=== PATIENT | male | born 1950 | race Caucasian/White ===

== ENCOUNTER 2017-04-20 11:07 | Inpatient (IN) | payer BC ==
[2017-04-20] MEDS ORDERED: Piperacill/Tazo 4.5gm in NS 4.5 GM/100 ML BAG IVPB STA (11:37)
[2017-04-20] MEDS ORDERED: Vancomycin 1gm in NS 250ml 1 GM/250 ML BAG IVPB STA (11:37)
--- NOTE | 2017-04-20 11:49 | ED PDOC ---
Arrival/HPI <Rj Barron - Last Filed: 04/20/17 12:30> - General Historian: Patient, Family - History of Present Illness Time/Duration: 1 week Symptom Onset: Gradual Symptom Course: Unchanged Activities at Onset: Rest, Light Context: Home <Chalino Vaughn - Last Filed: 04/20/17 13:55> - General Chief Complaint: Lower Extremity Problem/Injury Time Seen by Provider: 04/20/17 11:14 - History of Present Illness Narrative History of Present Illness (Text): 04/20/17 11:44 Mr. Rdz is a 66 year old male with a past medical history significant for DM2 and HLD who presents with chief complaint of right lower extremity swelling for one week with failed outpatient Bactrim therapy. Patient reports that one week ago his right foot became swollen extending to the mid calf with no known inciting event or trauma. Patient was seen by Dr. Yan 3 days [employer] and discharged with NSAID's and PO Bactrim. Patient reports minimal relief with this treatment and endorses tactile fever this AM. He denies chills, headache, changes in vision, sore throat, chest pain, SOB, abdominal pain, N/V/D/C, burning/pain with urination, or any numbness/tingling/weakness of any extremity. (Chalino Vaughn) Past Medical History - Provider Review Nursing Documentation Reviewed: Yes - Travel History Have you recently traveled outside [place] w/in the past 3 mons?: No - Past History Past History: No Previous - Infectious Disease Hx of Infectious Diseases: None - Tetanus Immunization Tetanus Immunization: Unknown - Cardiac Hx Hypertension: Yes - Endocrine/Metabolic Hx Diabetes Mellitus Type 2: Yes - Psychiatric Hx Substance Use: No - Anesthesia Hx Anesthesia Reactions: No <Chalino Vaughn - Last Filed: 04/20/17 13:55> Family/Social History Family/Social History: No Known Family HX Smoking Status: Unknown If Ever Smoked Hx Alcohol Use: Yes Frequency of alcohol use: Socially Hx Substance Use: No <Chalino Vaughn - Last Filed: 04/20/17 13:55> Allergies/Home Meds <Rj Barron - Last Filed: 04/20/17 12:30> <Chalino Vaughn - Last Filed: 04/20/17 13:55> Allergies/Adverse Reactions: Allergies No Known Allergies Allergy (Verified 04/20/17 11:23) Home Medications: Home Meds Medication Instructions Recorded Confirmed Celecoxib [CeleBREX] 200 mg PO DAILY 04/20/17 04/20/17 Colchicine [Mitigare] 0.6 mg PO BID 04/20/17 04/20/17 Simvastatin [Zocor] 10 mg PO DAILY 04/20/17 04/20/17 Sitagliptin Phos/Metformin HCl 50 - 1,000 mg PO DAILY 04/20/17 04/20/17 [Janumet 50-1,000 mg Tablet] Sulfamethoxazole [Sulfamethoxazole] 25,000 mg PO DAILY 04/20/17 04/20/17 Review of Systems - Physician Review All systems were reviewed & negative as marked: Yes - Review of Systems Constitutional: Fevers (Tactile). absent: Normal, Night Sweats Eyes: Normal. absent: Vision Changes ENT: Normal Respiratory: Normal. absent: SOB Cardiovascular: Normal. absent: Chest Pain, Palpitations Gastrointestinal: Normal. absent: Abdominal Pain, Constipation, Diarrhea, Nausea, Vomiting Genitourinary Male: Normal. absent: Dysuria Musculoskeletal: Arthralgias (Right ankle/foot), Joint Swelling (Right ankle/ foot). absent: Normal, Back Pain, Neck Pain Skin: Cellulitis (Right lower extremity). absent: Normal Neurological: Normal. absent: Headache Endocrine: Normal Hemo/Lymphatic: Normal Psychiatric: Normal <Chalino Vaughn - Last Filed: 04/20/17 13:55> Physical Exam Vital Signs Reviewed: Yes Temperature: Afebrile Blood Pressure: Normal Pulse: Tachycardic Respiratory Rate: Normal Appearance: Positive for: Well-Appearing, Non-Toxic, Comfortable Pain Distress: None Mental Status: Positive for: Alert and Oriented X 3 - Systems Exam Head: Present: Atraumatic, Normocephalic Pupils: Present: PERRL Extroacular Muscles: Present: EOMI Conjunctiva: Present: Normal Mouth: Present: Moist Mucous Membranes Neck: Present: Normal Range of Motion, Trachea Midline. No: Meningeal Signs, MIDLINE TENDERNESS, Paraspinal Tenderness, JVD Respiratory/Chest: Present: Clear to Auscultation, Good Air Exchange. No: Respiratory Distress, Accessory Muscle Use, Wheezes, Decreased Breath Sounds, Rales, Retracting, Rhonchi, Tachypneic Cardiovascular: Present: Normal S1, S2, Peripheal Pulses Present, Tachycardic. No: Regular Rate and Rhythm, Murmurs, Irregular Rhythm Abdomen: Present: Normal Bowel Sounds. No: Tenderness, Distention, Peritoneal Signs Back: Present: Normal Inspection. No: CVA Tenderness, Midline Tenderness, Paraspinal Tenderness Upper Extremity: Present: Normal Inspection. No: Cyanosis, Edema Lower Extremity: Present: Edema (RLE), CALF TENDERNESS (Right), NORMAL PULSES, Normal ROM, Tenderness (RLE), Swelling, Erythema (Dorsal aspect of right foot extending to right ankle), Temperature Abnormalties (Right lower extremity from dorsal aspect of right foot extending to just proximal of right ankle warm to palpation), Neurovascularly Intact, Capillary Refill < 2 s. No: Normal Inspection, Cyanosis, Madeline's Sign, Deformity Neurological: Present: GCS=15, CN II-XII Intact, Speech Normal, Motor Func Grossly Intact Skin: Present: Warm, Dry, Normal Color, Other (See above). No: Rashes Lymphatic: No: Cervical Adenopathy Psychiatric: Present: Alert, Oriented x 3, Normal Insight, Normal Concentration <Chalino Vaughn - Last Filed: 04/20/17 13:55> Vital Signs Temp Pulse Resp BP Pulse Ox 04/20/17 13:09 98 H 18 142/71 97 04/20/17 11:19 98.9 F 105 H 17 148/76 97 Medical Decision Making <Rj Barron - Last Filed: 04/20/17 12:30> - Lab Interpretations I have reviewed the lab results: Yes Interpretation: Abnormal lab values <Chalino Vaughn - Last Filed: 04/20/17 13:55> ED Course and Treatment: Patient Seen With Resident: In agreement with resident note which contains more details about the patient. Patient was seen and evaluated with resident. Came up with plan and treatment together. A 66 year old male with right lower extremity swelling. Additional HPI as noted by resident. On physical exam, patient has right calf and lower extremity tenderness, swelling and erythema on dorsal aspect of right foot extending to right ankle, normal range of motion, normal pulses, neurovascularly intact. Ordered labs and Urinalysis. Will give patient Vancomycin and Zosyn. 04/20/17 12:22 Seen and examined with the resident. Our history and physical exam reveals a gentleman who complains of approximately one week history of a right foot redness swelling and pain. He had negative x-rays and Doppler as an outpatient. He's been treated as an outpatient with by mouth Bactrim, but the swelling and erythema and pain has become worse. He has failed outpatient management and will need inpatient admission. (jR Barron) 04/20/17 11:53 Impression: 66 year old male with a past medical history significant for DM2 and HLD who presents with chief complaint of right lower extremity swelling for one week with failed outpatient Bactrim therapy Plan: -CBC, CMP, VBG shock panel, uric acid, INR/aPTT, cardiac iso, mag/phos, UA, blood culture, and wound culture -Single dose of IV Vancomycin and IV Zosyn -Reassess and disposition Prior Visits: No previous visits 04/20/17 13:[address] Yan, patients PMD, who accepts patient to her service on med/ surg floor. Patient agreeable to admission. (Chalino Vaughn) - Lab Interpretations Lab Results: 04/20/17 11:40 04/20/17 11:40 Lab Results 04/20/17 11:57: Urine Color Yellow, Urine Appearance Clear, Urine pH 6.0, Ur Specific [place] 1.020, Urine Protein 100 H, Urine Glucose (UA) 100 H, Urine Ketones 15 H, Urine Blood Small H, Urine Nitrate Negative, Urine Bilirubin Negative, Urine Urobilinogen 0.2, Ur Leukocyte Esterase Negative, Urine RBC 10 - 15, Urine WBC 2 - 5, Ur Epithelial Cells 0 - 2, Amorphous Sediment Few, Urine Bacteria Many, Fine Granular Casts 0 - 2, Coarse Granular Casts Trace H, Urine Other [place]yeast 04/20/17 11:40: pO2 39, VBG pH 7.34, VBG pCO2 49.0, VBG HCO3 26.4, VBG Total CO2 27.9, VBG O2 Sat (Calc) 77.6 H, VBG Base Excess 0.0, VBG Potassium 4.8, Sodium 132.0, Chloride 98.0, Glucose 255 H, Lactate 1.7, FiO2 21.0, Venous Blood Potassium 4.8 04/20/17 11:40: PT 14.3 H, INR 1.29 H, APTT 32.4 04/20/17 11:40: WBC 10.7, RBC 4.03, Hgb 12.1 L, Hct 35.8 L, MCV 88.8, MCH 30.0, MCHC 33.8, RDW 12.9, Plt Count 254, MPV 9.7, Gran % 78.7 H, Lymph % (Auto) 11.6 L, [place] % (Auto) 7.7 H, Eos % (Auto) 1.8, Baso % (Auto) 0.2, Gran # 8.44 H, Lymph # 1.2, [place] # 0.8 H, Eos # 0.2, Baso # 0.02 04/20/17 11:40: Sodium 132, Chloride 95 L, Potassium 4.9, Carbon Dioxide 27, Anion Gap 15, BUN 27 H, Creatinine 1.9 H, Est GFR ( Amer) 43, Est GFR ( Non-Af Amer) 36, Random Glucose 258 H, Uric Acid 5.9, Calcium 9.2, Phosphorus 3.8, Magnesium 1.4 L, Total Bilirubin 0.4, AST 25, ALT 30, Alkaline Phosphatase 62, Lactate Dehydrogenase 343, Total Creatine Kinase 140, Troponin I < 0.01, Total Protein 7.2, Albumin 3.6, Globulin 3.6, Albumin/Globulin Ratio 1.0 L - Medication Orders Current Medication Orders: Discontinued Medications Vancomycin HCl (Vancomycin 1gm) 1 gm in 250 mls @ 167 mls/hr IVPB STAT STA PRN Reason: Protocol Stop: 04/20/17 13:06 Last Admin: 04/20/17 12:46 Dose: 167 mls/hr eMAR Start Stop Document 04/20/17 12:46 CNR (Rec: 04/20/17 12:46 CNR [facility] [id number]) Intravenous Solution Start Date 04/20/17 Start Time 12:46 Piperacillin Sod/Tazobactam Sod (Zosyn 4.5 Gm In Ns 100ml) 4.5 gm in 100 mls @ 200 mls/hr IVPB STAT STA PRN Reason: Protocol Stop: 04/20/17 12:06 Last Admin: 04/20/17 12:05 Dose: 200 mls/hr eMAR Start Stop Document 04/20/17 12:05 MS (Rec: 04/20/17 12:11 MS [facility] [id number] Intravenous Solution Start Date 04/20/17 Start Time 12:10 End Date 04/20/17 End time 12:40 Total Infusion Time 30 Disposition/Present on Arrival - Present on Arrival Any Indicators Present on Arrival: No History of DVT/PE: No History of Uncontrolled Diabetes: No Urinary Catheter: No History of Decub. Ulcer: No - Disposition Have Diagnosis and Disposition been Completed?: Yes Disposition Time: 12:31 Patient Plan: Admission <Rj Barron - Last Filed: 04/20/17 12:30> - Present on Arrival Any Indicators Present on Arrival: No History of DVT/PE: No History of Uncontrolled Diabetes: No Urinary Catheter: No History of Decub. Ulcer: No History Surgical Site Infection Following: None - Disposition Have Diagnosis and Disposition been Completed?: Yes <Chalino Vaughn - Last Filed: 04/20/17 13:55> - Disposition Diagnosis: Anemia, Renal failure, Dehydration, Hematuria, Cellulitis, Edema Disposition: HOSPITALIZED Patient Problems: Current Active Problems Problem Status Onset Anemia Acute Cellulitis Acute Dehydration Acute Edema Acute Hematuria Acute Renal failure Acute Condition: GOOD
[2017-04-20 11:59] LABS: VENOUS BLOOD PH 7.34 (7.32-7.43)
[2017-04-20 12:10] LABS: ALKALINE PHOSPHATASE 62 U/L (38-126); ALT/SGPT 30 U/L (7-56); AST/SGOT 25 U/L (17-59); BILIRUBIN,TOTAL 0.4 mg/dL (0.2-1.3); BLOOD UREA NITROGEN 27 mg/dL (7-21); CALCIUM 9.2 mg/dL (8.4-10.5); CARBON DIOXIDE 27 mmol/L (21-33); CHLORIDE 95 mmol/L (98-107); GFR AFRICAN-AMERICAN 43; GLUCOSE,RANDOM 258 mg/dL (70-110); MAGNESIUM 1.4 mg/dL (1.7-2.2); PHOSPHOROUS 3.8 mg/dL (2.5-4.5); POTASSIUM 4.9 mmol/L (3.6-5.0); SODIUM 132 mmol/L (132-148); TOTAL PROTEIN 7.2 g/dL (5.8-8.3); URIC ACID 5.9 mg/dL (3.5-8.5)
[2017-04-20 12:14] LABS: BASO # 0.02 K/mm3 (0.0-2.0); BASO % 0.2 % (0.0-3.0); EOS # 0.2 (0.0-0.7); EOS % 1.8 % (1.5-5.0); GRAN # 8.44 (1.4-6.5); GRAN % 78.7 % (50.0-68.0); HEMATOCRIT 35.8 % (42.0-52.0); LYMPH # 1.2 (1.2-3.4); LYMPH % 11.6 % (22.0-35.0); MEAN CELL VOLUME 88.8 fl (80.0-105.0); MEAN CORPUSCULAR HGB CONC 33.8 g/dl (31.0-37.0); MEAN PLATELET VOLUME 9.7 fl (7.0-11.0); MONO # 0.8 (0.1-0.6); MONO % 7.7 % (1.0-6.0); RED CELL DISTRIBUTION WIDTH 12.9 % (11.5-14.5); WHITE BLOOD COUNT 10.7 10^3/ul (4.5-11.0)
[2017-04-20 12:15] LABS: URINE BILIRUBIN NEGATIVE (NEGATIVE); URINE BLOOD SMALL (NEGATIVE); URINE GLUCOSE (UA) 100 mg/dL (NEGATIVE); URINE KETONE 15 mg/dL (NEGATIVE); URINE LEUKOCYTE ESTERASE NEGATIVE Leu/uL (NEGATIVE); URINE PROTEIN 100 mg/dL (<30 mg/dL); URINE UROBILINOGEN 0.2 E.U./dL (<1 E.U./dL)
[2017-04-20 12:17] LABS: URINE COLOR YELLOW (YELLOW)
[2017-04-20 12:18] LABS: URINE APPEARANCE CLEAR (CLEAR)
[2017-04-20 12:20] LABS: TROPONIN I < 0.01 ng/mL
[2017-04-20 12:22] LABS: INR 1.29 (0.93-1.08); PARTIAL THROMBOPLASTIN TIME 32.4 Seconds (25.1-36.5)
[2017-04-20 12:26] LABS: URINE BACTERIA MANY (NEG)
[2017-04-20 12:27] LABS: URINE EPITHELIAL CELLS 0 - 2 /hpf (0-5)
[2017-04-20 12:28] LABS: URINE AMORPHOUS SEDIMENT FEW
[2017-04-20] MEDS: Insulin Reg-MEDIUM-Coverage SC SCH ×2 (17:30→21:24)
[2017-04-20] MEDS ORDERED: COLCHICINE 0.6 MG PO SCH (18:00)
[2017-04-20] MEDS ORDERED: Oxycodone/Acetaminophen 5/325 mg Tab PO PRN (18:56)
[2017-04-20] MEDS: Naproxen 550 mg Tab PO SCH (20:00)
[2017-04-20 20:12] VITALS: BMI 30.6
[2017-04-20] MEDS: MethylPREDNISolone 40 mg Vial IV SCH (21:31)
[2017-04-20] MEDS ORDERED: Piperacillin/Tazobact 3.375 gm 100 ML IVPB SCH (22:00)
--- NOTE | 2017-04-21 04:32 | HP ---
HISTORY OF PRESENT ILLNESS: The patient is a 66-year-old who is seen in the office because of the right foot swelling, pain, and difficulty walking. I gave him Bactrim DS, colchicine, and Celebrex. He states his swelling got worse and he called me this morning that he is unable to get off the bed or walk, so he was brought to emergency room for further evaluation. PAST MEDICAL HISTORY: Significant for: 1. Hypertension. 2. Cjp-ccdvbjt-rsmbshutv diabetes. 3. Hyperlipidemia. ALLERGIES: HE IS NOT ALLERGIC TO ANY MEDICATION. MEDICATIONS AT HOME: He was on Bactrim DS one tablet twice a day, he is on Januvia twice a day, simvastatin 10 mg daily, Celebrex 200 daily, and colchicine 0.6 twice a day. SOCIAL HISTORY: He drinks and denies active smoking. PHYSICAL EXAMINATION: GENERAL: Complain of right foot swelling and pain. He is awake, alert, oriented, and communicative. VITAL SIGNS: He is afebrile, pulse 83, respirations 20, and blood pressure 145/90. LUNGS: Bilateral fair airflow. No rhonchi or crackles. HEART: S1 and S2 audible. ABDOMEN: Soft and nontender. No rebound. No guarding. NEUROLOGIC: The patient is awake, alert, oriented, and communicative. EXTREMITIES: Right foot erythema mainly in the middle two fingers and dorsum of the foot has edema. LABORATORY DATA: WBC is 10.7, hemoglobin 12, hematocrit 35.8, and platelets of 254. PT 14.3 and INR 1.29. Chemistry: Sodium 132, potassium 4.9, chloride 95, CO2 of 27, BUN 27, creatinine 1.9, blood sugar is 258, and magnesium 1.4. Urinalysis shows small blood and trace granular cast. The patient has x-ray of the right ankle and foot done, unremarkable. Right leg Doppler is also negative for DVT. ASSESSMENT: 1. Right foot cellulitis, gouty arthritis versus cellulitis. 2. Udf-zgzbcoo-rzgdoggdd diabetes. 3. Hypertension. 4. Hyperlipidemia. PLAN: The patient is currently on vancomycin and Zosyn, we will give him one dose of Lasix. Continue him on colchicine. We will start him on Naprosyn and Percocet as needed. We will follow up the patient . Anthony Yan MD [facility] # [id number]
[2017-04-21 07:32] LABS: ALB/GLOB RATIO 0.9 (1.1-1.8); BILIRUBIN,TOTAL 0.5 mg/dL (0.2-1.3); CALCIUM 9.7 mg/dL (8.4-10.5); TOTAL PROTEIN 7.4 g/dL (5.8-8.3)
[2017-04-21 07:55] LABS: POTASSIUM 6.3 mmol/L (3.6-5.0)
[2017-04-21] MEDS: Insulin Reg-MEDIUM-Coverage SC SCH ×4 (08:21→22:03)
[2017-04-21] MEDS ORDERED: Sod Polystyrene Sulf 15 gm/60 ml Susp PO ONE ×2 (08:27→17:08)
[2017-04-21] MEDS: MethylPREDNISolone 40 mg Vial IV SCH ×2 (10:20→22:31)
[2017-04-21] MEDS: Naproxen 550 mg Tab PO SCH (10:20)
[2017-04-21] MEDS: Insulin Lispro (humaLOG) MIX 75/25(10 ml) SC SCH (20:00)
--- NOTE | 2017-04-21 22:56 | CON ---
DATE: 04/21/2017 LOCATION: The patient is seen early this morning in room 565, bed 2. CHIEF COMPLAINT: Right foot pain, erythema times several days. HISTORY OF PRESENT ILLNESS: This is a 66-year-old male with a history of diabetes mellitus, hypertension, and hyperlipidemia. He was originally from [facility], who was seen by Dr. Yan in her office because of the right foot swelling and difficulty walking. The patient was given Bactrim, colchicine, and Celebrex and his leg had progressively worse so point he could not walk. He had no fevers, no chills. He denied any trauma. No chest pain or shortness of breath. No cough. No hemoptysis. No abdominal pain, diarrhea, or constipation. PAST MEDICAL HISTORY: Significant for diabetes mellitus, hypertension, hyperlipidemia who was treated as an outpatient with failure. PAST SURGICAL HISTORY: Noncontributory. ALLERGIES: THE PATIENT HAS NO KNOWN ALLERGIES, ANY ANTIBIOTICS. MEDICATIONS AT HOME: Include the what he was given the Celebrex, Bactrim, metformin and Zocor. PHYSICAL EXAMINATION: GENERAL: He is sitting in bed, in no acute distress. Answering questions. VITAL SIGNS: Temperature of 98, heart rate of 83, pulse up to 105, respiratory rate of 20, blood pressure is 140/90. HEENT: Unremarkable. NECK: Supple. LUNGS: Decreased breath sounds. HEART: Normal S1 and S2. ABDOMEN: Soft, nontender. No rebound. No guarding. EXTREMITIES: Right foot is significant edema and erythema. He has base of his right foot, there is an ulcer with significant edema. LABORATORY DATA: Reveals a white count of 10,000, hemoglobin of 12, 78% granulocytosis. The patient's sed rate is 118. Coagulation is noted with INR of 1.29. Blood gases are reviewed. Chemistry reveals a BUN of 32, creatinine of 1.8. C-reactive protein is greater than 15. Urinalysis is noted. The patient with urine protein and trace of granular cast. Right foot culture is growing staph aureus. ASSESSMENT AND PLAN: This is a 66-year-old male with diabetes, hypertension, hyperlipidemia with severe right foot cellulitis, with significant findings must rule out cast formation with Staphylococcus aureus and mixed organisms. Awaiting for Dr. Dougherty's input. May need surgical intervention would have vascular workup. Evaluating in blood supply and podiatric workup must rule out underlying osteomyelitis. Should have an MRI without contrast and the patient would acute kidney injury. Would creatinine of 1.8 and with proteinuria and cast. The patient failed his outpatient on Bactrim. Recommend renal evaluation in addition to blood and wound cultures and imaging of the foot. The patient started on ceftaroline by Dr. John. We will follow closely with you must rule out underlying peripheral arterial disease and underlying osteomyelitis. Awaiting for imaging look for cast formation. We will follow with you. Cem Lane MD
--- NOTE | 2017-04-21 23:18 | PN ---
DATE: SUBJECTIVE: The patient is a 66-year-old seen and examined. His right leg swelling seems to be a lot better. His pain has improved and he is able to ambulate. PHYSICAL EXAMINATION: VITAL SIGNS: He is afebrile, pulse 82, respirations 20 and blood pressure 116/73. LUNGS: Bilateral good airflow. No rhonchi or crackle. HEART: S1 and S2 audible. ABDOMEN: Soft and nontender. No rebound. No guarding. NEUROLOGIC: The patient is awake, alert, oriented, communicative. LABORATORY DATA: WBC 10.7, hemoglobin 12.1, hematocrit 35.8 and platelet of 254. Chemistry: Sodium 135, potassium 6.3, chloride 100, CO2 of 25, BUN 32, creatinine 1.8 and blood sugar of . CRP is 115. ASSESSMENT: 1. Right foot cellulitis. 2. Lower leg cellulitis. 3. Hypertension. 4. Hyperkalemia. 5. Krm-ujiwrud-kfpgthreh diabetes. PLAN: We will continue the patient on IV steroid. Monitor blood sugar and adjust. I will discontinue Naprosyn, give him a dose of Kayexalate, and will repeat CMP in a.m. Anthony Yan MD
--- NOTE | 2017-04-22 02:05 | CON ---
DATE: 04/21/2017 HISTORY OF PRESENT ILLNESS: This is a 66-year-old diabetic male seen on consultation for painful right foot. The patient denies stepping on anything. He states that he wear a boot that was too tight and he developed a blister on the bottom of his foot. He was seen by his PMD, who started him on Bactrim, colchicine and Celebrex; however, he failed to get improvement and he was sent to the ER. PAST MEDICAL HISTORY: Positive for hypertension, positive for type 2 diabetes and positive for hyperlipidemia. MEDICATIONS: Noted on the JUL. ALLERGIES: HE HAS NO KNOWN DRUG ALLERGIES. SOCIAL HISTORY: Positive for EtOH, negative for smoking, tobacco and negative for drugs. The patient is presently on Rocephin. LABORATORY DATA: Reviewed. His Hematology has a white blood cell count of 10.7, H and H is 12.1 and 35.8, his granulocyte is 78.7, lymphs were 11.6 with a shift to the left and GFR was 118. His chemistry shows sodium is 135, his potassium is 6.3, his BUN and creatinine is 32 and 1.8, glucose was 175. The patient's C-reactive protein was greater than 15. Microbiology; he did have wound culture done in the ER and had grew Staphylococcus aureus. PHYSICAL EXAMINATION VITAL SIGNS: Also reviewed, his temperature was 97.7, blood pressure 116/73, respirations 20 and oxygen saturation was 98 at room air. EXTREMITIES: Clinically, he has 2 out of 4 palpable DP and PT pulses to his lower extremity bilateral, he has decrease sensation to both feet bilateral, secondary to diabetic neuropathy. The patient's right foot has mild edema, there was some edema around the ankle area. He did have a Cole bandage wrapped quite unevenly, I am not sure if the edema from the ankle area is from the Cole bandage. We stopped the Cole bandage and that will be further accessed tomorrow. He did have a blister on the plantar aspect of the foot underneath the third and fourth toes and with some compression, there was serous fluid that emtited from that area. We cultured this fluid in second culture. The patient did have macerated tissues and using sterile suture removal kit, a macerated epidermal skin was excisionally debrided and removed. There was a small ulceration noted on the plantar aspect of metatarsals ray, this did have sinus tract that went from that wound approximately 2.5 cm distal. No bone was palpated and there was no abscess are noted besides the drainage that was initially expressed. There was no ascending cellulitis, the foot was swollen as noted before and there was some local increased temperature gradient around this area. ASSESSMENT: Diabetic with neuropathy with infected right foot. PLAN OF TREATMENT: Radiographs were ordered. New culture and sensitivity was taken, this was noted from the drainage from the deeper sinus tract and we ordered Silvadene cream to be placed on that area on the daily basis. The patient will be seen and followed in a.m. Sed rate which is worrisome and we will need to rule out osteomyelitis after we get the plain films back. May Dougherty DPM
[2017-04-22 06:59] LABS: BASO # 0.01 K/mm3 (0.0-2.0); BASO % 0.1 % (0.0-3.0); GRAN # 12.84 (1.4-6.5); HEMATOCRIT 38.3 % (42.0-52.0); LYMPH % 7.1 % (22.0-35.0); MEAN CELL VOLUME 88.5 fl (80.0-105.0); MEAN CORPUSCULAR HGB CONC 33.9 g/dl (31.0-37.0); MEAN PLATELET VOLUME 9.6 fl (7.0-11.0); MONO # 0.6 (0.1-0.6); MONO % 3.8 % (1.0-6.0); RED CELL DISTRIBUTION WIDTH 12.9 % (11.5-14.5); WHITE BLOOD COUNT 14.4 10^3/ul (4.5-11.0)
[2017-04-22 07:07] LABS: ALKALINE PHOSPHATASE 90 U/L (38-126); ALT/SGPT 33 U/L (7-56); AST/SGOT 23 U/L (17-59); BILIRUBIN,TOTAL 0.3 mg/dL (0.2-1.3); BLOOD UREA NITROGEN 36 mg/dL (7-21); CALCIUM 9.4 mg/dL (8.4-10.5); CARBON DIOXIDE 26 mmol/L (21-33); CHLORIDE 99 mmol/L (98-107); GFR AFRICAN-AMERICAN > 60; GLUCOSE,RANDOM 341 mg/dL (70-110); POTASSIUM 5.3 mmol/L (3.6-5.0); SODIUM 137 mmol/L (132-148); TOTAL PROTEIN 7.8 g/dL (5.8-8.3)
[2017-04-22] MEDS: Insulin Reg-MEDIUM-Coverage SC SCH ×2 (08:17→12:03)
[2017-04-22] MEDS: Insulin Lispro (humaLOG) MIX 75/25(10 ml) SC SCH ×2 (08:18→16:32)
--- NOTE | 2017-04-22 08:44 | RAD ---
PROCEDURE: Right Ankle Radiographs. HISTORY: wound ankle COMPARISON: None FINDINGS: BONES: Normal. No fracture. JOINTS: Normal. No osteoarthritis. Ankle mortise maintained. Talar dome intact SOFT TISSUES: Normal. OTHER FINDINGS: None. IMPRESSION: Normal right ankle radiographs.
--- NOTE | 2017-04-22 08:46 | RAD ---
PROCEDURE: Right Foot Radiographs. HISTORY: diabetic foot ulcer plantar distal foot COMPARISON: 04/17/2017 FINDINGS: BONES: Normal. No fracture. JOINTS: Normal. SOFT TISSUES: Normal. OTHER FINDINGS: None. IMPRESSION: No evidence of osteomyelitis
[2017-04-22] MEDS: MethylPREDNISolone 40 mg Vial IV SCH (09:54)
[2017-04-22] MEDS: Silver Sulfadiazine 1% Cream (25 gm) TP SCH (09:54)
[2017-04-22] MEDS ORDERED: MethylPREDNISolone 40 mg Vial IV SCH (11:30)
--- NOTE | 2017-04-22 14:04 | PN ---
DATE: SUBJECTIVE: The patient is 66-year-old, seen and examined, doing better. His dorsum of foot is still red, but edema has significantly subsided, minimal pain, and able to ambulate. PHYSICAL EXAMINATION: VITAL SIGNS: He is afebrile, pulse 89, respirations 20, and blood pressure 141/92. LUNGS: Bilateral good airflow. No rhonchi or crackles. HEART: S1 and S2 audible. ABDOMEN: Soft and nontender. No rebound. No guarding. NEUROLOGIC: He is awake, alert, oriented, and communicative. EXTREMITIES: His right naqvi edema has significantly subsided. He still has erythema on the dorsum of the foot. LABORATORY DATA: WBC 14.4, hemoglobin 13, hematocrit 38, and platelets of 330. Chemistry: Sodium 137, potassium 5.3, chloride 99, CO2 of 26, BUN 36, creatinine 1.4, and blood sugar of 451. ASSESSMENT: 1. Right foot cellulitis. The patient has wound on the volar aspect of second and third toe. 2. Hyperkalemia. 3. Renal insufficiency, improving. 4. Bsa-vbnisfh-fqcnjkbtv diabetes. PLAN: We will discontinue colchicine. We will discontinue Solu-Medrol. Monitor his blood sugar. Continue him on Teflaro. We will need to continue his antibiotics. We will follow up his CMP in a.m. Restart his oral hypoglycemic if his kidney function improves. Anthnoy Yan MD
[2017-04-22] MEDS: Insulin Reg-HIGH-Coverage SC SCH ×2 (16:29→22:01)
--- NOTE | 2017-04-22 17:40 | CP.PCM.PN ---
<Lee Ann Fernández - Last Filed: 04/22/17 17:37> Subjective - Date & Time of Evaluation Date of Evaluation: 04/22/17 Time of Evaluation: 17:37 - Subjective Subjective: Podiatry Progress Note - Dr. Dougherty 66 year old male patient seen and evaluated for abscess + cellulitis right foot. Patient resting comfortably at time of visit, hemodynamically stable and NAD. Denies any acute events overnight. Denies any pain to right foot. No new pedal complaints this visit. Denies N/V/F/D/C/SOB/calf pain. Objective - Vital Signs/Intake and Output Vital Signs (last 24 hours): Temp Pulse Resp BP Pulse Ox 97.7 F 18 L 20 135/93 H 98 04/22/17 17:13 04/22/17 17:13 04/22/17 17:13 04/22/17 17:13 04/22/17 17:13 Intake and Output: 04/22/17 04/22/17 06:59 18:59 Intake Total 960 Balance 960 - Medications Medications: Current Medications Atorvastatin Calcium (Lipitor) 10 mg PO DIN [facility] Last Admin: 04/22/17 16:28 Dose: 10 mg Ceftaroline Fosamil 300 mg/ (Sodium Chloride) 50 mls @ 50 mls/hr IVPB Q12H [facility] PRN Reason: Protocol Stop: 04/28/17 22:46 Last Admin: 04/22/17 12:02 Dose: 50 mls/hr Insulin Human Regular (Humulin R High) 0 units SC ACHS [facility] PRN Reason: Protocol Last Admin: 04/22/17 16:29 Dose: 12 units Insulin Lispro Protam/Lispro Human (Humalog Mix 75/25) 18 units SC ACBD [facility] Last Admin: 04/22/17 16:32 Dose: 18 u Oxycodone/Acetaminophen (Percocet 5/325 Mg Tab) 1 tab PO Q4H PRN PRN Reason: Pain, moderate (4-7) Stop: 04/23/17 18:57 Silver Sulfadiazine (Silvadene 1% 25 Gm) 0 gm TP DAILY [facility] Last Admin: 04/22/17 09:54 Dose: 25 gm Sitagliptin Phosphate (Januvia) 50 mg PO DAILY [facility] Last Admin: 04/22/17 09:53 Dose: 50 mg - Labs Labs: 12/13/17 06:20 04/22/17 06:20 PT 14.3 SECONDS (9.4-12.5) H 04/20/17 11:40 INR 1.29 (0.93-1.08) H 04/20/17 11:40 APTT 32.4 Seconds (25.1-36.5) 04/20/17 11:40 - Constitutional Appears: Well, Non-toxic, No Acute Distress - Extremities Exam Additional comments: VASC: DP pulses palpable 3/4 b/l. PT pulses palpable 2/4 b/l. CFT <3 seconds to all digits. Temperature gradient warm to hot to RLE, warm to warm LLE. Nonpitting edema noted to dorsum of forefoot extending to digits; edema to ankle joint has decreased. Pedal hair growth diminished. NEURO: Gross sensation absent DERM: RLE = Erosion secondary to lanced blister to plantar sulcus at 3rd and 4th digits; small ulceration noted to the plantar 3rd interspace. Blister noted to dorsal 3rd interspace; once lanced a pinpoint opening was noted - a sinus tract extended from dorsal wound to plantar wound which expressed approximately 1cc of purulence. Erythema noted globally around forefoot. ORTHO: No pain on palpation erosion, blister on dorsum of foot, or wounds. - Neurological Exam Neurological Exam: Alert, Awake, Oriented x3 - Psychiatric Exam Psychiatric exam: Normal Affect, Normal Mood Assessment and Plan - Assessment and Plan (Free Text) Assessment: 66 year old male with diabetic neuropathy, cellulitis, and abscess right foot Plan: Patient seen and evaluated with attending, Dr. Dougherty Patient afebrile currently, ESR = 118, WBC 14.4 increasing s/p bedside I&D yesterday (yesterday WBC 10.7) Uric acid 5.9 yesterday Right foot and ankle XR reviewed - negative for osteomyelitis Right foot MRI ordered r/o OM Right foot WCx reveals growth of staph aureus Bedside I&D performed - approximately 1cc purulence able to be expressed from wound to plantar sulcus Patient is scheduled for OR tomorrow for right foot I&D -Patient to be NPO past mn Continue abx per ID = ceftaroline Podiatry will continue to follow patient while in house <May Dougherty - Last Filed: 04/23/17 17:24> Objective - Vital Signs/Intake and Output Vital Signs (last 24 hours): Temp Pulse Resp BP Pulse Ox 97.9 F 81 17 155/92 H 98 04/23/17 15:55 04/23/17 15:55 04/23/17 15:55 04/23/17 15:55 04/23/17 15:55 Intake and Output: 04/23/17 04/23/17 06:59 18:59 Intake Total 540 0 Balance 540 0 - Medications Medications: Current Medications Acetaminophen (Tylenol 325mg Tab) 650 mg PO Q6H PRN PRN Reason: Pain, Mild (1-3) Atorvastatin Calcium (Lipitor) 10 mg PO DIN [facility] Last Admin: 04/23/17 17:20 Dose: 10 mg Hydromorphone HCl (Dilaudid) 0.5 mg IVP Q15M PRN PRN Reason: Pain, moderate (4-7) Stop: 04/23/17 17:26 Ceftriaxone Sodium (Rocephin 2 Gm Ivpb) 2 gm in 100 mls @ 100 mls/hr IVPB DAILY [facility] PRN Reason: Protocol Stop: 05/02/17 10:01 Last Admin: 04/23/17 10:01 Dose: 100 mls/hr Sodium Chloride (Sodium Chloride 0.9%) 1,000 mls @ 75 mls/hr IV .[id number] [facility] Stop: 04/23/17 17:31 Last Admin: 04/23/17 16:19 Dose: Not Given Insulin Human Regular (Humulin R High) 0 units SC ACHS [facility] PRN Reason: Protocol Last Admin: 04/23/17 17:20 Dose: 4 units Insulin Lispro Protam/Lispro Human (Humalog Mix 75/25) 18 units SC ACBD [facility] Last Admin: 04/23/17 17:13 Dose: 18 u Ondansetron HCl (Zofran Inj) 4 mg IVP ONCE PRN PRN Reason: Nausea/Vomiting Oxychlorosene Sodium (Clorpactin Wcs-90) 2 gm TOP DAILY [facility] Oxycodone/Acetaminophen (Percocet 5/325 Mg Tab) 2 tab PO Q6H PRN PRN Reason: Pain, severe (8-10) Stop: 04/26/17 15:32 Oxycodone/Acetaminophen (Percocet 5/325 Mg Tab) 1 tab PO Q4H PRN PRN Reason: Pain, moderate (4-7) Stop: 04/23/17 18:57 Silver Sulfadiazine (Silvadene 1% 25 Gm) 0 gm TP DAILY [facility] Last Admin: 04/23/17 10:01 Dose: Not Given Sitagliptin Phosphate (Januvia) 50 mg PO DAILY [facility] Last Admin: 04/23/17 10:00 Dose: Not Given - Labs Labs: 04/23/17 05:30 04/23/17 05:30 PT 14.3 SECONDS (9.4-12.5) H 04/20/17 11:40 INR 1.29 (0.93-1.08) H 04/20/17 11:40 APTT 32.4 Seconds (25.1-36.5) 04/20/17 11:40 Attending/Attestation - Attestation I have personally seen and examined this patient.: Yes I have fully participated in the care of the patient.: Yes I have reviewed all pertinent clinical information, including history, physical exam and plan: Yes
--- NOTE | 2017-04-22 21:13 | MRI ---
EXAM: MR Right Lower Extremity Without Intravenous Contrast, Foot EXAM DATE/TIME: 04/22/2017 5:51 PM CLINICAL HISTORY: The patient age is 66 years old and is male; Signs and symptoms; Other: Open wound; Additional info: Abscess R/O om; Take off dressings Facility exam id and description: Mri footwoconr foot w/o contrast right TECHNIQUE: Multiplanar magnetic resonance images of the right foot without intravenous contrast. COMPARISON: No relevant prior studies available. FINDINGS: LIGAMENTS: Medial collateral: No visible acute tear. Lateral collateral: No visible acute tear. Lisfranc: No visualized acute tear. TENDONS: Flexor: No visualized acute tear. Extensor: No visualized acute tear. Peroneal: There is mild tendinosis of the peroneus longus tendon. Muscles: Muscle edema is identified, suggestive of myositis. Fluid: There is a small first MTP joint effusion. Sinus tarsi: Mild edema fluid is seen within the sinus tarsi. Plantar fascia: There is mild edema adjacent to the plantar fascia proximally, suggestive of plantar fasciitis. The proximal plantar fascia is out of the field of view of this study. Bones/joints: Within the interspace between the third and fourth MTP joints and toes, there is a multiloculated cystic fluid collection or abscess measuring 1.4 x 1.2 x 3.6 cm. Distally, this fluid extends to the plantar aspect of the foot. No acute marrow edema is identified within the visualized foot to suggest osteomyelitis. A marker is identified plantar to the first MTP joint. There is a small cystic collection of fluid adjacent to the tibiotalar joint measuring 0.9 x 0.7 cm, likely representing a synovial cyst. Soft tissues: There is soft tissue swelling of the foot, most significant dorsally. This is suggestive of cellulitis. IMPRESSION: 1. Within the interspace between the third and fourth MTP joints and toes, there is a multiloculated cystic fluid collection or abscess measuring 1.4 x 1.2 x 3.6 cm. Distally, this fluid extends to the plantar aspect of the foot. 2. There is soft tissue swelling of the foot, most significant dorsally. This is suggestive of cellulitis. 3. No acute marrow edema is identified within the visualized foot to suggest osteomyelitis. 4. There is mild tendinosis of the peroneus longus tendon. 5. There is mild edema adjacent to the plantar fascia proximally, suggestive of plantar fasciitis. The proximal plantar fascia is out of the field of view of this study. 6. Muscle edema is identified, suggestive of myositis. 7. Additional findings described above.
--- NOTE | 2017-04-22 21:19 | PN ---
DATE: 04/22/2017 SUBJECTIVE: The patient seen early this morning in room 565, bed 2. The patient is doing well. No fevers and no chills. No nausea. No vomiting. PHYSICAL EXAMINATION: VITAL SIGNS: Temperature is 98, blood pressure is 130/90, and respiratory rate of 20. HEENT: Unremarkable. NECK: Supple. LUNGS: Have decreased breath sounds. HEART: Normal S1 and S2. ABDOMEN: Soft and nontender. LABORATORY DATA: Reveals a white count of 14,400, hemoglobin of 13, and platelets of 330. Chemistry reveals a BUN of 36 and creatinine of 1.4. Microbiology reveals the patient's foot with a oxacillin-sensitive Staphylococcus aureus WINNIE of 0.5 with a vancomycin WINNIE of 1. Blood cultures are negative. Another right foot culture also Staphylococcus aureus to sensitivity, it is not available. MEDICATIONS: The patient is on Teflaro. ASSESSMENT AND PLAN: A 66-year-old male with diabetes mellitus, hypertension, hyperlipidemia with a sensitive Staphylococcus aureus severe right foot cellulitis most rule out underlying osteomyelitis, waiting for MRI. We will discontinue the Teflaro and give ceftriaxone and check on the sensitivity of the second culture. The first one is sensitive to Staphylococcus aureus. Cem Lane MD
[2017-04-23 07:06] LABS: BASO # 0.02 K/mm3 (0.0-2.0); BASO % 0.2 % (0.0-3.0); EOS # 0.1 (0.0-0.7); EOS % 0.6 % (1.5-5.0); GRAN # 9.18 (1.4-6.5); GRAN % 75.2 % (50.0-68.0); HEMATOCRIT 37.1 % (42.0-52.0); LYMPH # 1.8 (1.2-3.4); LYMPH % 15.1 % (22.0-35.0); MEAN CELL VOLUME 88.3 fl (80.0-105.0); MEAN CORPUSCULAR HEMOGLOBIN 30.5 pg (25.0-35.0); MEAN CORPUSCULAR HGB CONC 34.5 g/dl (31.0-37.0); MEAN PLATELET VOLUME 9.5 fl (7.0-11.0); MONO # 1.1 (0.1-0.6); MONO % 8.9 % (1.0-6.0); RED CELL DISTRIBUTION WIDTH 12.8 % (11.5-14.5); WHITE BLOOD COUNT 12.2 10^3/ul (4.5-11.0)
[2017-04-23 07:22] LABS: ALKALINE PHOSPHATASE 125 U/L (38-126); ALT/SGPT 29 U/L (7-56); AST/SGOT 32 U/L (17-59); BILIRUBIN,TOTAL 0.3 mg/dL (0.2-1.3); BLOOD UREA NITROGEN 31 mg/dL (7-21); CALCIUM 9.5 mg/dL (8.4-10.5); CARBON DIOXIDE 27 mmol/L (21-33); CHLORIDE 98 mmol/L (98-107); GFR AFRICAN-AMERICAN > 60; GLUCOSE,RANDOM 290 mg/dL (70-110); POTASSIUM 4.3 mmol/L (3.6-5.0); SODIUM 137 mmol/L (132-148); TOTAL PROTEIN 7.3 g/dL (5.8-8.3); URIC ACID 6.3 mg/dL (3.5-8.5)
[2017-04-23] MEDS: Insulin Lispro (humaLOG) MIX 75/25(10 ml) SC SCH ×2 (08:22→17:13)
[2017-04-23] MEDS: Insulin Reg-HIGH-Coverage SC SCH ×4 (08:23→21:57)
[2017-04-23] MEDS: cefTRIAXone 2 GM IN NS 2 GM/100 ML BAG IVPB SCH (10:01)
[2017-04-23] MEDS: Silver Sulfadiazine 1% Cream (25 gm) TP SCH (10:01)
[2017-04-23] MEDS ORDERED: Propofol 10 mg/ml Inj (20 ML) ONE ×2 (14:15→14:40)
[2017-04-23] MEDS ORDERED: Midazolam 2 MG/2 ML VIAL ONE (14:15)
[2017-04-23] MEDS ORDERED: Lidocaine 2% Inj (20ml) ONE (14:18)
[2017-04-23] MEDS ORDERED: Gentamicin 80 mg/2mL Inj. ONE (14:36)
[2017-04-23] MEDS ORDERED: ePHEDrine 50 mg/ml Inj ONE (14:54)
[2017-04-23] MEDS ORDERED: HYDROmorphone 0.5 mg/0.5 ml ISec IVP PRN (15:26)
[2017-04-23] MEDS ORDERED: Sodium Chloride 0.9% 1,000 ML IV SCH (15:30)
--- NOTE | 2017-04-23 15:30 | PCM.SURG1 ---
Surgeon's Initial Post Op Note - Surgeon's Notes Surgeon: Dr. Dougherty Air Sampling And Monitoring: Dr. Lee Ann Fernández PGY1 Type of Anesthesia: IV Sedation, Local (15cc 2% lidocaine plain) Anesthesia Administered By: Dr. Sanjeev Blankenship Pre-Operative Diagnosis: Right foot abscess + cellulitis Operative Findings: See operative report. Materials: 05/14" iodoform packing Post-Operative Diagnosis: Right foot abscess + cellulitis Operation Performed: Right foot incision and drainage Specimen/Specimens Removed: 1) Right foot abscess wound culture 2) Right foot soft tissue r/o uric acid Estimated Blood Loss: EBL {In ML}: 15 Blood Products Given: N/A Drains Used: Giovany Post-Op Condition: Good Date of Surgery/Procedure: 04/23/17 Time of Surgery/Procedure: 15:00
[2017-04-23] MEDS ORDERED: Oxycodone/Acetaminophen 5/325 mg Tab PO PRN ×2 (15:31→15:33)
--- NOTE | 2017-04-23 19:08 | PN ---
DATE: SUBJECTIVE: The patient is a 66-year-old, seen and examined. His right foot pain and swelling has significantly improved, slight erythema on the dorsum of the foot, but he does have a discharging wound on the solar aspect of right foot. PHYSICAL EXAMINATION VITAL SIGNS: The patient is afebrile, pulse 81, respirations 17, blood pressure 155/92. LUNGS: Bilateral fair airflow. No rhonchi or crackle. HEART: S1 and S2 audible. ABDOMEN: Soft, nontender. No rebound. No guarding. NEUROLOGIC: The patient is awake, alert, oriented, communicative. Ambulates without walker. LABORATORY DATA: WBC is 12.2, hemoglobin 12.8, hematocrit 37.1, platelet of 340. Sodium 137, potassium 4.3, chloride 98, CO2 27, BUN 31, creatinine 1.2, blood sugar of 175. The patient had MRI showed collection in the second and third toe base status post incision and drainage of the collection that he is on the solar aspect. ASSESSMENT: 1. Non-insulin dependent diabetes. 2. Abscess between third and fourth metatarsophalangeal joint. 3. Status post Incision and drainage. 4. Hyperlipidemia. 5. Hypertension. PLAN: Currently, the patient is on analgesic. Continue on lisinopril 75/25, 18 units before breakfast and dinner. He is on Januvia. Percocet is for mild to moderate pain. We will continue him on Rocephin and will follow up his CBC and CMP in a.m. Request for TCU evaluation since he need wound care and physical therapy. Anthony Yan MD
--- NOTE | 2017-04-23 21:14 | PN ---
DATE: 04/23/2017 SUBJECTIVE: The patient is in bed, in no acute distress. Nontoxic. PHYSICAL EXAMINATION: VITAL SIGNS: Temperature is 98, blood pressure is 155/90, and respiratory rate of 18. HEENT: Unremarkable. NECK: Supple. LUNGS: Have decreased breath sounds. HEART: Normal S1, S2. ABDOMEN: Soft, nontender. LABORATORY DATA: Reveals white count of 4200, sed rate is 118. Chemistries reveals BUN of 31; creatinine is 1.2; C-reactive protein is elevated, greater than 15. Urinalysis noted. The patient is with coarse granular cast. Microbiology reveals Staph aureus in the right foot, which is reported to be pansensitive, and there is Staph aureus in another culture of the right foot, which does not have sensitivity. CURRENT MEDICATIONS: Reveals the patient to be on ceftriaxone. DIAGNOSTIC DATA: The patient had an MRI, which shows within the inner space between the third and fourth MTP joints and toes, there is multiloculated cystic fluid collection or abscess measuring 1.4, 1.6, 3.6 cm and soft tissue swelling suggestive of cellulitis. There is no acute marrow edema to suggest osteomyelitis. Dr. Dougherty's operative note from today is reviewed. The patient had right foot abscess wound culture and the patient had a right foot incision and drainage of the abscess. ASSESSMENT AND PLAN: This is a 66-year-old with diabetes mellitus, hypertension, hyperlipidemia, sensitive staphylococcus aureus with severe right foot cellulitis and abscess formation, and status post incision and drainage of the abscess. Negative MRI for osteomyelitis. We will follow closely with you. Currently on ceftriaxone. Cem Lane MD
[2017-04-24 07:05] LABS: BASO # 0.02 K/mm3 (0.0-2.0); BASO % 0.2 % (0.0-3.0); EOS # 0.3 (0.0-0.7); EOS % 2.8 % (1.5-5.0); GRAN # 5.96 (1.4-6.5); HEMATOCRIT 38.5 % (42.0-52.0); LYMPH # 1.9 (1.2-3.4); LYMPH % 20.8 % (22.0-35.0); MEAN CELL VOLUME 88.1 fl (80.0-105.0); MEAN CORPUSCULAR HEMOGLOBIN 30.4 pg (25.0-35.0); MEAN CORPUSCULAR HGB CONC 34.5 g/dl (31.0-37.0); MEAN PLATELET VOLUME 9.5 fl (7.0-11.0); MONO # 0.8 (0.1-0.6); MONO % 9.2 % (1.0-6.0); RED CELL DISTRIBUTION WIDTH 12.8 % (11.5-14.5); WHITE BLOOD COUNT 8.9 10^3/ul (4.5-11.0)
[2017-04-24 07:57] VITALS: RESP 20
[2017-04-24 08:02] LABS: ALKALINE PHOSPHATASE 73 U/L (38-126); ALT/SGPT 41 U/L (7-56); AST/SGOT 26 U/L (17-59); BILIRUBIN,TOTAL 0.5 mg/dL (0.2-1.3); BLOOD UREA NITROGEN 20 mg/dL (7-21); CALCIUM 9.1 mg/dL (8.4-10.5); CARBON DIOXIDE 26 mmol/L (21-33); CHLORIDE 96 mmol/L (98-107); GFR AFRICAN-AMERICAN > 60; GLUCOSE,RANDOM 233 mg/dL (70-110); POTASSIUM 4.3 mmol/L (3.6-5.0); SODIUM 135 mmol/L (132-148); TOTAL PROTEIN 7.1 g/dL (5.8-8.3)
[2017-04-24] MEDS: Insulin Reg-HIGH-Coverage SC SCH ×4 (08:18→21:51)
[2017-04-24] MEDS: Insulin Lispro (humaLOG) MIX 75/25(10 ml) SC SCH ×2 (08:19→18:19)
[2017-04-24] MEDS: cefTRIAXone 2 GM IN NS 2 GM/100 ML BAG IVPB SCH (09:18)
[2017-04-24] MEDS: Silver Sulfadiazine 1% Cream (25 gm) TP SCH (11:00)
[2017-04-24] MEDS: Oxychlorosene Topical 2 gm Packet TOP SCH (11:00)
--- NOTE | 2017-04-24 14:47 | CP.PCM.PN ---
<Lee Ann Fernández - Last Filed: 04/24/17 14:40> Subjective - Date & Time of Evaluation Date of Evaluation: 04/24/17 Time of Evaluation: 14:40 - Subjective Subjective: Podiatry Progress Note - Dr. Dougherty/[place] 66 year old male seen and evaluated POD#1 right foot incision and drainage. Patient resting comfortably, hemodynamically stable and NAD. Denies any acute events overnight. Denies any pain to his left foot currently. States he was recently visited by physical therapy for fitting of wedge shoe. Denies any N/V/F /D/C/SOB. Objective - Vital Signs/Intake and Output Vital Signs (last 24 hours): Temp Pulse Resp BP Pulse Ox 97.2 F L 89 20 139/91 H 96 04/24/17 07:30 04/24/17 07:30 04/24/17 07:30 04/24/17 07:30 04/24/17 07:30 Intake and Output: 04/24/17 04/24/17 06:59 18:59 Intake Total 340 960 Balance 340 960 - Medications Medications: Current Medications Acetaminophen (Tylenol 325mg Tab) 650 mg PO Q6H PRN PRN Reason: Pain, Mild (1-3) Atorvastatin Calcium (Lipitor) 10 mg PO DIN [facility] Last Admin: 04/23/17 17:20 Dose: 10 mg Ceftriaxone Sodium (Rocephin 2 Gm Ivpb) 2 gm in 100 mls @ 100 mls/hr IVPB DAILY [facility] PRN Reason: Protocol Stop: 05/02/17 10:01 Last Admin: 04/24/17 09:18 Dose: 100 mls/hr Insulin Human Regular (Humulin R High) 0 units SC ACHS [facility] PRN Reason: Protocol Last Admin: 04/24/17 13:55 Dose: 7 units Insulin Lispro Protam/Lispro Human (Humalog Mix 75/25) 18 units SC ACBD [facility] Last Admin: 04/24/17 08:19 Dose: 18 u Ondansetron HCl (Zofran Inj) 4 mg IVP ONCE PRN PRN Reason: Nausea/Vomiting Oxychlorosene Sodium (Clorpactin Wcs-90) 2 gm TOP DAILY [facility] Last Admin: 04/24/17 11:00 Dose: 2 gm Oxycodone/Acetaminophen (Percocet 5/325 Mg Tab) 2 tab PO Q6H PRN PRN Reason: Pain, severe (8-10) Stop: 04/26/17 15:32 Silver Sulfadiazine (Silvadene 1% 25 Gm) 0 gm TP DAILY [facility] Last Admin: 04/24/17 11:00 Dose: 25 gm Sitagliptin Phosphate (Januvia) 50 mg PO DAILY [facility] Last Admin: 04/24/17 09:44 Dose: 50 mg - Labs Labs: 04/24/17 06:30 04/24/17 06:30 PT 14.3 SECONDS (9.4-12.5) H 04/20/17 11:40 INR 1.29 (0.93-1.08) H 04/20/17 11:40 APTT 32.4 Seconds (25.1-36.5) 04/20/17 11:40 - Constitutional Appears: Well, Non-toxic, No Acute Distress - Extremities Exam Additional comments: Dressing to right foot appears clean/dry/intact with no strikethrough noted VASC: DP pulses palpable 2/4 b/l. PT pulses palpable 2/4 b/l. CFT <3 seconds to all digits. Temperature gradient warm to warm b/l. Nonpitting edema noted to dorsum of right forefoot extending to digits, decreased. Pedal hair growth diminished. NEURO: Gross sensation absent DERM: RLE = Linear surgical incision noted dorsally with 1/4" iodoform packing in place, no erythema noted periwound. Dorsal wound appears to have a 100% granular base; no purulence able to be expressed this visit; minimal serosanguinous drainage noted. Surgical incision noted plantarly with 1/4" packing in place, erosion from previously deroofed blister noted periwound. Plantarwound appears to have a mixed fibrogranular base; no purulence able to be expressed; minimal serosanguinous drainage noted. Erythema previously noted globally around forefoot has diminished. Giovany drain present in sinus tract from dorsal and plantar wounds. ORTHO: No pain on palpation to erosion or surgical incisions. - Neurological Exam Neurological Exam: Alert, Awake, Oriented x3 - Psychiatric Exam Psychiatric exam: Normal Affect, Normal Mood Assessment and Plan - Assessment and Plan (Free Text) Assessment: 66 year old male with diabetic neuropathy, cellulitis, and abscess right foot POD#1 right foot incision and drainage (DOS 04/23/17) Plan: Patient seen and evaluated with attending, Dr. Figueroa Patient afebrile currently, ESR = 118, WBC 8.9 today trending downwards ( yesterday 04/23/17 12.2) Uric acid 6.3 yesterday Right foot and ankle XR reviewed - negative for osteomyelitis Right foot MRI ordered r/o OM Right foot WCx reveals growth of staph aureus Awaiting surgery wound culture and soft tissue pathology report Wounds cleansed with Clorpactin/Saline mix, repacked with 1/4" iodoform, and dressed with DSD Patient may be WB to right heel in forefoot wedge shoe Continue PT Continue abx per ID = ceftriaxone Podiatry will continue to follow patient while in house <Armando Figueroa - Last Filed: 04/24/17 19:14> Objective - Vital Signs/Intake and Output Vital Signs (last 24 hours): Temp Pulse Resp BP Pulse Ox 97.2 F L 89 20 139/91 H 96 04/24/17 07:30 04/24/17 07:30 04/24/17 07:30 04/24/17 07:30 04/24/17 07:30 Intake and Output: 04/24/17 04/25/17 18:59 06:59 Intake Total 960 Balance 960 - Medications Medications: Current Medications Acetaminophen (Tylenol 325mg Tab) 650 mg PO Q6H PRN PRN Reason: Pain, Mild (1-3) Atorvastatin Calcium (Lipitor) 10 mg PO DIN [facility] Last Admin: 04/24/17 18:18 Dose: 10 mg Ceftriaxone Sodium (Rocephin 2 Gm Ivpb) 2 gm in 100 mls @ 100 mls/hr IVPB DAILY [facility] PRN Reason: Protocol Stop: 05/02/17 10:01 Last Admin: 04/24/17 09:18 Dose: 100 mls/hr Insulin Human Regular (Humulin R High) 0 units SC ACHS [facility] PRN Reason: Protocol Last Admin: 04/24/17 18:18 Dose: 10 units Insulin Lispro Protam/Lispro Human (Humalog Mix 75/25) 18 units SC ACBD [facility] Last Admin: 04/24/17 18:19 Dose: 18 u Metformin HCl (Glucophage) 500 mg PO BID [facility] Last Admin: 04/24/17 18:18 Dose: 500 mg Ondansetron HCl (Zofran Inj) 4 mg IVP ONCE PRN PRN Reason: Nausea/Vomiting Oxychlorosene Sodium (Clorpactin Wcs-90) 2 gm TOP DAILY [facility] Last Admin: 04/24/17 11:00 Dose: 2 gm Oxycodone/Acetaminophen (Percocet 5/325 Mg Tab) 2 tab PO Q6H PRN PRN Reason: Pain, severe (8-10) Stop: 04/26/17 15:32 Silver Sulfadiazine (Silvadene 1% 25 Gm) 0 gm TP DAILY [facility] Last Admin: 04/24/17 11:00 Dose: 25 gm Sitagliptin Phosphate (Januvia) 50 mg PO DAILY [facility] Last Admin: 04/24/17 09:44 Dose: 50 mg - Labs Labs: 04/24/17 06:30 04/24/17 06:30 PT 14.3 SECONDS (9.4-12.5) H 04/20/17 11:40 INR 1.29 (0.93-1.08) H 04/20/17 11:40 APTT 32.4 Seconds (25.1-36.5) 04/20/17 11:40 Attending/Attestation - Attestation I have personally seen and examined this patient.: Yes I have fully participated in the care of the patient.: Yes I have reviewed all pertinent clinical information, including history, physical exam and plan: Yes
--- NOTE | 2017-04-24 18:53 | PN ---
DATE: 04/24/2017 SUBJECTIVE: The patient is in bed, in no acute distress, nontoxic. PHYSICAL EXAMINATION VITAL SIGNS: Temperature is 98, blood pressure is 139/90, respiratory rate of 18. HEENT: Unremarkable.. NECK: Supple. LUNGS: Have decreased breath sounds. HEART: Normal S1 and S2. ABDOMEN: Soft and nontender. LABORATORY DATA: Reveals a white count of 8.9, hemoglobin of 13, and platelets of 365. BUN of 20 and creatinine of 1.1. The patient sed rate is noted to be 118 and his C-reactive protein is reported to be greater than 15. Microbiology reveals that the patient's Staph aureus from the right foot is pansensitive. MRI revealed no osteomyelitis. ASSESSMENT AND PLAN: This 66-year-old male with sensitive Staph aureus abscess in the right foot, multiloculated cystic fluid collection and no evidence of osteomyelitis, may be able to switch to p.o. antibiotics to complete therapy upon discharge and clear by Podiatry. Cem Lane MD
--- NOTE | 2017-04-24 20:41 | PN ---
DATE: SUBJECTIVE: The patient is a 66-year-old, seen and examined. Doing well. Minimal right foot pain, status post incision and drainage for the right solar aspect of foot abscess. Denies any nausea or vomiting. No fever. No chills. PHYSICAL EXAMINATION VITAL SIGNS: He is afebrile, pulse 89, respirations 20, blood pressure 139/91. LUNGS: Bilateral good airflow. No rhonchi or crackle. HEART: S1 and S2 audible. ABDOMEN: Soft, nontender. No rebound. No guarding. NEUROLOGIC: He is awake, alert, oriented, communicative. His right foot is in the dressing status post incision and drainage. LABORATORY DATA: WBC is 8.9, hemoglobin 13, hematocrit 38, platelet of 355. Chemistry; sodium 135, potassium 4.3, chloride 96, CO2 26, BUN 20, creatinine is 1.1, blood sugar of 302. ASSESSMENT: 1. Right foot ulcer status post incision and drainage. 2. Non-insulin dependent diabetes. 3. Hypertension. 4. Hyperlipidemia. PLAN: Since his kidney function has improved, we will put back on metformin. We will monitor his blood sugar. Wound care has been done by the early childhood teacher assistant. Anthony Yan MD
--- NOTE | 2017-04-24 21:11 | OP ---
PROCEDURE DATE: 04/23/2017 PREOPERATIVE DIAGNOSIS: Right foot abscess and cellulitis. POSTOPERATIVE DIAGNOSIS: Right foot abscess and cellulitis. NAME OF PROCEDURE: Right foot incision and drainage. PATHOLOGY: 1. Right foot abscess wound culture. 2. Right foot soft tissue, rule out uric acid. SURGEON: Dr. Dougherty. FOLEY ARTIST: Dr. Lee Ann Fernández, DPM, PGY-1 TYPE OF ANESTHESIA: IV sedation with local 15 mL with 2% lidocaine plain. ANESTHESIOLOGIST: Dr. Sanjeev Blankenship. INDICATIONS: The patient is a 66-year-old male with the above diagnosis. The patient has exhausted all conservative treatment at this time and now requests surgical intervention. The patient signed the consent after careful explanation of risks, benefits, complications, and alternatives for the procedure and wishes to proceed. No guarantees were given nor implied. PREPARATION: The patient was brought into the operating room and placed on the operating room table in a supine position. Time-out was performed for identification of the correct patient and procedure. After induction of IV sedation, the patient received a total of 15 mL of 2% lidocaine plain in a proximal V-type fashion to the right foot. The right foot was then prepped and draped in normal sterile manner and the procedure began. DESCRIPTION OF PROCEDURE: Attention was directed to the dorsal aspect of the third interspace of the right foot where a linear incision was made at the base of the third and fourth digits using a #15 blade. The excision was extended through subcutaneous layers down to the level of bone. The incision was widened using sharp and blunt dissection technique. Upon opening of the incision, purulence was expressed from the wound. Next, attention was directed to the plantar sulcus at the third and fourth digits, and was noted to have two pinpoint ulcerations noted to the plantar third interspace and just proximal to the third digit. Using a #15 blade, an incision was made communicating these two ulcerations. The incision was widened using sharp and blunt dissection. Once the incision was opened, this plantar wound was noted to communicate with the dorsal incision. The dorsal aspect of the midfoot and forefoot were milked in order to relieve the foot from purulence, same was done on the plantar aspect of the right foot, from the midfoot milking distally to the forefoot, approximately 15 mL of purulence was able to expressed. Using the N-Sided ultrasonic cylindrical tip with normal saline + gentamicin mix, the instrument was probed from the plantar incision and was moved through the sinus tract to the dorsal ulceration using the tip on setting 5, all fibrotic and nonviable tissue where the plantar and dorsal incisions communicated, was excisionally debrided until healthy bleeding granular tissue appeared. The Misonix cylindrical tip was used in the dorsal third interspace and approximately 5 cm proximal and used along the plantar sulcus medially and laterally. Any remaining nonviable tissue was excised using forceps and curved iris scissors. All bleeders were cauterized as necessary. The site was then flushed with copious amounts of sterile saline. The dorsal wound was packed with quarter inch Iodoform packing strip proximally and through the communication plantarly; the plantar wound was also packed with quarter inch Iodoform packing and a Gunlock drain was placed from dorsal to proximal surgical wounds and then the right foot was dressed with sterile gauze, ABDs, and Kerlix. POSTOPERATIVE CONDITION: The patient tolerated the anesthesia and the procedure well and was escorted to the recovery room with vital signs stable and neurovascular status intact to the right foot. The patient is to remain nonweightbearing to the right foot today. Physical therapy will be consulted for evaluation and they will dispense a forefoot wedge shoe. At that time, the patient may be weightbearing as tolerated to the right heel in the forefoot wedge shoe. The packing will be removed from the patient's right foot tomorrow and cleansed with Clorpactin solution and then repacked with quarter inch Iodoform. The patient will continue to be followed while in-house. Lee Ann Fernández DPM May Dougherty DPM MTDElle
[2017-04-25] MEDS: Insulin Reg-HIGH-Coverage SC SCH ×4 (08:36→21:31)
[2017-04-25] MEDS: Insulin Lispro (humaLOG) MIX 75/25(10 ml) SC SCH ×2 (08:37→16:55)
[2017-04-25] MEDS: Oxychlorosene Topical 2 gm Packet TOP SCH (09:19)
[2017-04-25] MEDS: cefTRIAXone 2 GM IN NS 2 GM/100 ML BAG IVPB SCH (09:20)
[2017-04-25] MEDS: Silver Sulfadiazine 1% Cream (25 gm) TP SCH (09:21)
--- NOTE | 2017-04-25 10:06 | CP.PCM.PN ---
<Jessica Worrell - Last Filed: 04/25/17 11:40> Subjective - Date & Time of Evaluation Date of Evaluation: 04/25/17 Time of Evaluation: 09:30 - Subjective Subjective: Podiatry Progress Note - Dr. Figueroa 66 year old male pt seen at bedside this AM POD#2 right foot incision and drainage. Pt is seen resting comfortably in bed at time of visit. Denies any pain or discomfort to the foot or leg today. Says that physical therapy saw him yesterday to fit him for a shoe but he has not received it yet, has been compliant with PWB to the right heel. Denies f/n/v/c/sob/cp/weakness/dizziness at this time. Offers no other complaints today but is anxious to go home. Objective - Vital Signs/Intake and Output Vital Signs (last 24 hours): Temp Pulse Resp BP Pulse Ox 98 F 96 H 20 139/91 H 97 04/25/17 09:28 04/25/17 09:28 04/25/17 09:28 04/24/17 07:30 04/25/17 09:28 Intake and Output: 04/25/17 04/25/17 06:59 18:59 Intake Total 240 Balance 240 - Medications Medications: Current Medications Acetaminophen (Tylenol 325mg Tab) 650 mg PO Q6H PRN PRN Reason: Pain, Mild (1-3) Atorvastatin Calcium (Lipitor) 10 mg PO DIN [facility] Last Admin: 04/24/17 18:18 Dose: 10 mg Ceftriaxone Sodium (Rocephin 2 Gm Ivpb) 2 gm in 100 mls @ 100 mls/hr IVPB DAILY [facility] PRN Reason: Protocol Stop: 05/02/17 10:01 Last Admin: 04/25/17 09:20 Dose: 100 mls/hr Insulin Human Regular (Humulin R High) 0 units SC ACHS [facility] PRN Reason: Protocol Last Admin: 04/25/17 08:36 Dose: 7 units Insulin Lispro Protam/Lispro Human (Humalog Mix 75/25) 18 units SC ACBD [facility] Last Admin: 04/25/17 08:37 Dose: Not Given Metformin HCl (Glucophage) 500 mg PO BID [facility] Last Admin: 04/25/17 09:19 Dose: 500 mg Ondansetron HCl (Zofran Inj) 4 mg IVP ONCE PRN PRN Reason: Nausea/Vomiting Oxychlorosene Sodium (Clorpactin Wcs-90) 2 gm TOP DAILY [facility] Last Admin: 04/25/17 09:19 Dose: Not Given Oxycodone/Acetaminophen (Percocet 5/325 Mg Tab) 2 tab PO Q6H PRN PRN Reason: Pain, severe (8-10) Stop: 04/26/17 15:32 Silver Sulfadiazine (Silvadene 1% 25 Gm) 0 gm TP DAILY [facility] Last Admin: 04/25/17 09:21 Dose: Not Given Sitagliptin Phosphate (Januvia) 50 mg PO DAILY [facility] Last Admin: 04/25/17 09:19 Dose: 50 mg - Labs Labs: 04/24/17 06:30 04/24/17 06:30 PT 14.3 SECONDS (9.4-12.5) H 04/20/17 11:40 INR 1.29 (0.93-1.08) H 04/20/17 11:40 APTT 32.4 Seconds (25.1-36.5) 04/20/17 11:40 - Constitutional Appears: Non-toxic, No Acute Distress - Extremities Exam Additional comments: R foot dressing appears c/d/i with no strikethrough VASC: DP pulses palpable 2/4 b/l. PT pulses palpable 2/4 b/l. CFT <3 seconds to all digits. Temperature gradient warm to warm b/l, slight non-pitting edema noted to dorsum of right forefoot extending to digits, decreased. Pedal hair growth diminished. NEURO: Gross sensation absent DERM: RLE = Linear surgical incision noted dorsally with 1/4" iodoform packing in place, no erythema noted periwound. Dorsal wound appears to have a 100% granular base; no purulence able to be expressed this visit; minimal serosanguinous drainage noted. Surgical incision noted plantarly with 1/4" packing in place, erosion from previously deroofed blister noted periwound. Plantarwound appears to have a mixed fibrogranular base; no purulence able to be expressed; minimal serosanguinous drainage noted. Erythema previously noted globally around forefoot has diminished. [place] drain present in sinus tract from dorsal and plantar wounds. ORTHO: No pain on palpation to erosion or surgical incisions. - Neurological Exam Neurological Exam: Alert, Awake, Oriented x3 - Psychiatric Exam Psychiatric exam: Normal Affect, Normal Mood Assessment and Plan - Assessment and Plan (Free Text) Assessment: 66 year old male POD#2 I&D right foot 2/2 diabetic foot infection (negative osteomyelitis) Plan: Patient S&E at [facility] Plan discussed with attending Dr. Figueroa Chart, labs and vitals reviewed: WBC 8.9 yesterday trending down, NNL this morning Uric acid wnl (6.3 on 04/23/17) Right foot and ankle XR (04/21/17): negative for osteomyelitis Right foot MRI (04/22/17 pre-debridement in OR): within the interspace between the third and fourth MTP joints and toes, there is a multilocculated cysstic fluid collection or abscess measuring 1.4x1.2x3.6cm. Distally, this fluid extends to the plantar aspect of the foot, suggestive of cellulitis. Negative for osteomyelitis Right foot WCx: + S. aureus Awaiting surgery wound culture and soft tissue pathology report Wounds flushed with Clorpactin/Saline mix, repacked with 1/4" iodoform, and dressed with DSD Patient may be WB to right heel in forefoot wedge shoe Continue PT Continue abx per ID = ceftriaxone As per Dr. Figueroa and Dr. Dougherty: recommend PICC line, will f/u ID recommendations for discharge planning Will follow while in house. <Armando Figueroa - Last Filed: 04/29/17 08:12> Objective - Vital Signs/Intake and Output Vital Signs (last 24 hours): Temp Pulse Resp BP Pulse Ox 98.2 F 94 H 20 132/84 98 04/28/17 07:30 04/28/17 07:30 04/28/17 07:30 04/28/17 07:30 04/28/17 07:30 - Labs Labs: 04/24/17 06:30 04/24/17 06:30 PT 14.3 SECONDS (9.4-12.5) H 04/20/17 11:40 INR 1.29 (0.93-1.08) H 04/20/17 11:40 APTT 32.4 Seconds (25.1-36.5) 04/20/17 11:40 Attending/Attestation - Attestation I have personally seen and examined this patient.: Yes I have fully participated in the care of the patient.: Yes I have reviewed all pertinent clinical information, including history, physical exam and plan: Yes
--- NOTE | 2017-04-25 12:16 | PN ---
DATE: 04/25/2017 SUBJECTIVE: The patient is seen early this morning. He states he is doing well. No nausea, no vomiting. No diarrhea. OBJECTIVE: VITAL SIGNS: Temperature is 97, blood pressure is 130/70, and respiratory rate is 16. HEENT: Unremarkable. NECK: Supple. LUNGS: Have decreased breath sounds. HEART: Normal S1 and S2. ABDOMEN: Soft. LABORATORY DATA: Reveals white count of 8.9, hemoglobin of 13, and platelets of 355. Chemistries reveals BUN of 20 and creatinine of 1.1. Urinalysis is noted. Microbiology reveals sensitive to Staphylococcus aureus. ASSESSMENT AND PLAN: A 66-year-old male with a sensitive Staphylococcus aureus abscess to right foot, multiloculated cystic fluid collection on the MRI with no evidence of osteomyelitis and can be switched to p.o. Augmentin 875 p.o. b.i.d. times 10-14 days of treatment upon discharge, currently on ceftriaxone. We will discussed with PMD. The patient is requesting regarding going home. Cem Lane MD
--- NOTE | 2017-04-26 01:50 | PN ---
DATE: SUBJECTIVE: The patient is a 66-year-old seen and examined, doing well. No fever. No chills. No nausea. No vomiting. His right foot swelling has significantly improved. Erythema and edema has improved significantly. PHYSICAL EXAMINATION VITAL SIGNS: Afebrile. Pulse 107, respirations 20 and blood pressure 139/91. LUNGS: Bilateral fair airflow. No rhonchi or crackle. HEART: S1 and S2 audible. ABDOMEN: Soft, obese and nontender. No rebound. No guarding. NEUROLOGIC: He is awake, alert, oriented, communicative. Bilateral leg, no edema. Right foot, dorsal erythema and edema has significantly subsided. His right foot has been dressed by a battery tester field, draining blood tinged serous fluid. LABORATORY DATA: His wound culture is positive for Staphylococcus aureus and the patient is afebrile with improvement of his white count, yesterday was 8.9. ASSESSMENT: 1. Right foot abscess, status post incision and drainage. 2. Diabetic neuropathy. 3. Non-insulin dependent diabetes. 4. Hypertension. 5. Hyperlipidemia. PLAN: Currently, the patient is on Rocephin. We will continue that. He needs local wound care. The patient lives by himself. He would benefit from TCU to complete his course of antibiotics and wound care. I will discuss with other consultants. Anthony Yan MD
[2017-04-26] MEDS: Insulin Lispro (humaLOG) MIX 75/25(10 ml) SC SCH ×2 (08:30→17:43)
[2017-04-26] MEDS: Insulin Reg-HIGH-Coverage SC SCH ×4 (08:43→22:48)
[2017-04-26] MEDS: cefTRIAXone 2 GM IN NS 2 GM/100 ML BAG IVPB SCH (10:07)
[2017-04-26] MEDS: Silver Sulfadiazine 1% Cream (25 gm) TP SCH (10:08)
[2017-04-26] MEDS: Oxychlorosene Topical 2 gm Packet TOP SCH (10:09)
--- NOTE | 2017-04-26 11:17 | CP.PCM.PN ---
Subjective - Date & Time of Evaluation Date of Evaluation: 04/26/17 Time of Evaluation: 09:50 - Subjective Subjective: Podiatry Progress Note - Dr. Dougherty 66 year old male pt seen at bedside this AM POD#3right foot incision and drainage. Pt is seen resting comfortably in bed at time of visit. Denies any pain or discomfort to the foot or leg today. Says he has still not received his shoe, but has been compliant with PWB to right heel. Denies f/n/v/c/sob/cp/ weakness or dizziness today. Pt states that he would like to go home on oral antibiotics. Objective - Vital Signs/Intake and Output Vital Signs (last 24 hours): Temp Pulse Resp BP Pulse Ox 98.4 F 87 20 139/91 H 100 04/26/17 09:14 04/26/17 09:14 04/26/17 09:14 04/24/17 07:30 04/25/17 16:00 Intake and Output: 04/26/17 04/26/17 06:59 18:59 Intake Total 780 Balance 780 - Medications Medications: Current Medications Acetaminophen (Tylenol 325mg Tab) 650 mg PO Q6H PRN PRN Reason: Pain, Mild (1-3) Atorvastatin Calcium (Lipitor) 10 mg PO DIN [facility] Last Admin: 04/25/17 17:32 Dose: 10 mg Ceftriaxone Sodium (Rocephin 2 Gm Ivpb) 2 gm in 100 mls @ 100 mls/hr IVPB DAILY [facility] PRN Reason: Protocol Stop: 05/02/17 10:01 Last Admin: 04/26/17 10:07 Dose: 100 mls/hr Insulin Human Regular (Humulin R High) 0 units SC ACHS [facility] PRN Reason: Protocol Last Admin: 04/26/17 08:43 Dose: 2 units Insulin Lispro Protam/Lispro Human (Humalog Mix 75/25) 18 units SC ACBD [facility] Last Admin: 04/26/17 08:30 Dose: 18 u Metformin HCl (Glucophage) 500 mg PO BID [facility] Last Admin: 04/26/17 10:07 Dose: 500 mg Ondansetron HCl (Zofran Inj) 4 mg IVP ONCE PRN PRN Reason: Nausea/Vomiting Oxychlorosene Sodium (Clorpactin Wcs-90) 2 gm TOP DAILY [facility] Last Admin: 04/26/17 10:09 Dose: 2 gm Oxycodone/Acetaminophen (Percocet 5/325 Mg Tab) 2 tab PO Q6H PRN PRN Reason: Pain, severe (8-10) Stop: 04/26/17 15:32 Silver Sulfadiazine (Silvadene 1% 25 Gm) 0 gm TP DAILY [facility] Last Admin: 04/26/17 10:08 Dose: 25 gm Sitagliptin Phosphate (Januvia) 50 mg PO DAILY [facility] Last Admin: 04/26/17 10:06 Dose: 50 mg - Labs Labs: 04/24/17 06:30 04/24/17 06:30 PT 14.3 SECONDS (9.4-12.5) H 04/20/17 11:40 INR 1.29 (0.93-1.08) H 04/20/17 11:40 APTT 32.4 Seconds (25.1-36.5) 04/20/17 11:40 - Constitutional Appears: Well, Non-toxic, No Acute Distress - Extremities Exam Additional comments: R foot dressing appears c/d/i with no strikethrough VASC: DP pulses palpable 2/4 b/l. PT pulses palpable 2/4 b/l. CFT <3 seconds to all digits. Temperature gradient warm to warm b/l, slight non-pitting edema noted to dorsum of right forefoot extending to digits, decreased. Pedal hair growth diminished. NEURO: Gross sensation absent DERM: surgical incision noted dorsally with 1/4" iodoform packing in place, no erythema noted periwound. Dorsal wound appears to have a 100% granular base; no purulence expressd, very minimal serosanguinous drainage noted. Surgical incision noted plantarly with 1/4" packing in place, erosion from previously deroofed blister noted periwound. Plantarwound appears to have a granular base; no purulence able to be expressed; minimal serous noted. Abesent erythema. ORTHO: No pain on palpation to erosion or surgical incisions. - Neurological Exam Neurological Exam: Alert, Awake, Oriented x3 - Psychiatric Exam Psychiatric exam: Normal Affect, Normal Mood Assessment and Plan - Assessment and Plan (Free Text) Assessment: 66 year old male POD#3 I&D right foot 2/2 diabetic foot infection (negative osteomyelitis) Plan: Patient S&E at [facility] Plan discussed with attending Dr. Dougherty Chart, labs and vitals reviewed: NNL Uric acid wnl (6.3 on 04/23/17) Right foot and ankle XR (04/21/17): negative for osteomyelitis Right foot MRI (04/22/17 pre-debridement in OR): within the interspace between the third and fourth MTP joints and toes, there is a multilocculated cysstic fluid collection or abscess measuring 1.4x1.2x3.6cm. Distally, this fluid extends to the plantar aspect of the foot, suggestive of cellulitis. Negative for osteomyelitis Right foot WCx: + S. aureus Awaiting surgical cx and pathology Wounds flushed with Clorpactin/Saline mix, packing discontinued, dressed with DSD, kerlix WB to right heel in forefoot wedge shoe Continue PT c/w abx as per ID, will follow up regarding discharge plan Stable per podiatry, will follow
--- NOTE | 2017-04-26 12:31 | PN ---
DATE: 04/26/2017 SUBJECTIVE: The patient seen earlier, no fevers or chills. PHYSICAL EXAMINATION VITAL SIGNS: Temperature is 98, blood pressure is 130/90, respiratory of 20, heart rate of 96. HEENT: Unremarkable. NECK: Supple. LUNGS: Lungs have decreased breath sounds. HEART: Normal S1 and S2. ABDOMEN: Soft and nontender. LABORATORY DATA: Reveals a white count of 8.9, hemoglobin 13, platelet 355. Coagulation is noted. BUN of 20 and creatinine of 1.1. Urinalysis is noted. Microbiology reveals the Staph aureus from the foot culture, which is pansensitive x3 cultures from the right foot. Review of orders reveals the patient is on ceftriaxone. Dr. Yan's note is reviewed from yesterday. ASSESSMENT AND PLAN: This is a 66-year-old male with sensitive Staph aureus abscess to the right foot with multiloculated cystic fluid collection on MRI. No evidence of osteomyelitis on MRI. Continue with ceftriaxone at this time. The patient at this point, possible transfer to Transitional Care. Cem Lane MD
--- NOTE | 2017-04-26 20:15 | PN ---
DATE: SUBJECTIVE: The patient is a 66-year-old, seen and examined, doing well. Anxious to go home. No nausea, vomiting or diarrhea. No fevers or chills. PHYSICAL EXAMINATION VITAL SIGNS: He is afebrile, pulse 87, respirations 20, and blood pressure 139/91. LUNGS: Bilateral good fair airflow. No rhonchi or crackle. HEART: S1 and S2 audible. ABDOMEN: Soft, nontender and obese. No hepatosplenomegaly. NEUROLOGIC: The patient is awake, alert, oriented, able to communicate. LABORATORY DATA: Blood sugar is 332. ASSESSMENT: 1. Right foot abscess, status post incision and drainage. 2. Diabetic neuropathy. 3. Hypertension. 4. Hyperlipidemia. 5. Uncontrolled diabetes. PLAN: I will increase his Januvia to 100 mg daily. We will continue him on metformin. He is on insulin also. We will continue him on Rocephin. We will continue local wound care. We will discuss with Dr. Lane. Since he has diabetic neuropathy, the patient has not been healing his wound and because of his poor compliance and my previous experience, he won't be able to take care of his wound, he need to be in supervised environment to get care. So, I will request for TCU evaluation. If the patient is accepted in TCU for wound care and continuation of antibiotic, we will transfer him to TCU. Anthony Yan MD
[2017-04-27] MEDS: Insulin Reg-HIGH-Coverage SC SCH ×4 (09:21→22:57)
[2017-04-27] MEDS: Insulin Lispro (humaLOG) MIX 75/25(10 ml) SC SCH ×2 (09:21→16:54)
[2017-04-27] MEDS: Silver Sulfadiazine 1% Cream (25 gm) TP SCH (09:23)
[2017-04-27] MEDS: cefTRIAXone 2 GM IN NS 2 GM/100 ML BAG IVPB SCH (09:43)
[2017-04-27] MEDS: Oxychlorosene Topical 2 gm Packet TOP SCH (17:02)
--- NOTE | 2017-04-27 17:23 | CP.PCM.PN ---
Subjective - Date & Time of Evaluation Date of Evaluation: 04/27/17 Time of Evaluation: 17:19 - Subjective Subjective: Podiatry Progress Note- Dr. Dougherty Patient is a 66 year old male seen at bedside with attending for POD #4 right foot incision and drainage. Patient is seen resting comfortably in bed, in NAD, and AA0x3. Denies of any acute overnight events. Patient denies any pain during visitation today. Patient also reports that he has not gotten his surgical shoe as told. He denies n/v/sob/cp/chills or f. Objective - Vital Signs/Intake and Output Vital Signs (last 24 hours): Temp Pulse Resp BP Pulse Ox 97.7 F 88 20 123/87 97 04/27/17 08:00 04/27/17 08:00 04/27/17 08:00 04/27/17 08:00 04/27/17 08:00 Intake and Output: 04/27/17 04/27/17 06:59 18:59 Intake Total 240 760 Balance 240 760 - Medications Medications: Current Medications Acetaminophen (Tylenol 325mg Tab) 650 mg PO Q6H PRN PRN Reason: Pain, Mild (1-3) Atorvastatin Calcium (Lipitor) 10 mg PO DIN [facility] Last Admin: 04/27/17 17:02 Dose: 10 mg Glimepiride (Amaryl) 2 mg PO DAILY [facility] Last Admin: 04/27/17 09:19 Dose: 2 mg Ceftriaxone Sodium (Rocephin 2 Gm Ivpb) 2 gm in 100 mls @ 100 mls/hr IVPB DAILY [facility] PRN Reason: Protocol Stop: 05/02/17 10:01 Last Admin: 04/27/17 09:43 Dose: 100 mls/hr Insulin Human Regular (Humulin R High) 0 units SC ACHS [facility] PRN Reason: Protocol Last Admin: 04/27/17 15:39 Dose: Not Given Insulin Lispro Protam/Lispro Human (Humalog Mix 75/25) 18 units SC ACBD [facility] Last Admin: 04/27/17 16:54 Dose: Not Given Metformin HCl (Glucophage) 500 mg PO BID [facility] Last Admin: 04/27/17 17:02 Dose: 500 mg Ondansetron HCl (Zofran Inj) 4 mg IVP ONCE PRN PRN Reason: Nausea/Vomiting Oxychlorosene Sodium (Clorpactin Wcs-90) 2 gm TOP DAILY [facility] Last Admin: 04/27/17 17:02 Dose: 2 gm Silver Sulfadiazine (Silvadene 1% 25 Gm) 0 gm TP DAILY [facility] Last Admin: 04/27/17 09:23 Dose: 25 gm Sitagliptin Phosphate (Januvia) 100 mg PO DAILY [facility] Last Admin: 04/27/17 09:19 Dose: 100 mg - Labs Labs: 04/24/17 06:30 04/24/17 06:30 PT 14.3 SECONDS (9.4-12.5) H 04/20/17 11:40 INR 1.29 (0.93-1.08) H 04/20/17 11:40 APTT 32.4 Seconds (25.1-36.5) 04/20/17 11:40 - Constitutional Appears: Non-toxic, No Acute Distress - Extremities Exam Additional comments: = VASC: DP pulses palpable 2/4 b/l. PT pulses palpable 2/4 b/l. CFT <3 seconds to all digits. Temperature gradient warm to warm b/l, slight non-pitting edema noted to dorsum of right forefoot extending to digits, decreased. Pedal hair growth diminished. NEURO: Gross and protective sensation absent DERM: surgical incision noted dorsally with 1/4" iodoform packing in place, no erythema noted periwound. Dorsal wound appears to have a 100% granular base; no purulence expressd, very minimal serosanguinous drainage noted. Surgical incision noted plantarly with 1/4" packing in place, erosion from previously deroofed blister noted periwound. Plantarwound appears to have a granular base; no purulence able to be expressed; minimal serous noted. Abesent erythema. ORTHO: No pain on palpation to erosion or surgical incisions. - Neurological Exam Neurological Exam: Alert, Awake, Oriented x3 - Psychiatric Exam Psychiatric exam: Normal Affect, Normal Mood Assessment and Plan - Assessment and Plan (Free Text) Assessment: 66 year old male POD#4 I&D right foot 2/2 diabetic foot infection (negative osteomyelitis) Plan: Patient is seen and evaluated at bedside with attending Dr. Dougherty Plan discussed with attending Dr. Dougherty Chart, labs and vitals reviewed: afebrile, WBC=8.9 on 04/24/17 Uric acid WNL (6.3 on 04/23/17) Right foot and ankle XR (04/21/17): negative for osteomyelitis Right foot MRI (04/22/17 pre-debridement in OR): within the interspace between the third and fourth MTP joints and toes, there is a multilocculated cysstic fluid collection or abscess measuring 1.4x1.2x3.6cm. Distally, this fluid extends to the plantar aspect of the foot, suggestive of cellulitis. Negative for osteomyelitis Right foot WCx: + S. aureus Awaiting surgical cx and pathology Wounds flushed with saline solution, packing discontinued, silvadene applied, dressed with DSD, kerlix WB to right heel in forefoot wedge shoe Please dispense forefoot wedge shoe; nursing communication placed. thank you. Continue PT c/w abx as per ID, will follow up regarding discharge plan Stable per podiatry, will follow
[2017-04-28 05:03] VITALS: BP 132/84
[2017-04-28 07:31] VITALS: PULSE 94; TEMP 98.2; O2SAT 98
[2017-04-28] MEDS: Insulin Lispro (humaLOG) MIX 75/25(10 ml) SC SCH (08:02)
[2017-04-28] MEDS: Insulin Reg-HIGH-Coverage SC SCH ×2 (08:03→12:13)
[2017-04-28] MEDS: cefTRIAXone 2 GM IN NS 2 GM/100 ML BAG IVPB SCH (10:50)
[2017-04-28] MEDS: Oxychlorosene Topical 2 gm Packet TOP SCH (10:50)
[2017-04-28] MEDS: Silver Sulfadiazine 1% Cream (25 gm) TP SCH (10:51)
--- NOTE | 2017-04-28 18:43 | PN ---
DATE: 04/28/2017 SUBJECTIVE: The patient is seen in bed, in no acute distress. PHYSICAL EXAMINATION VITAL SIGNS: Temperature is 98, blood pressure is 160/90, respiratory rate of 20. HEENT: Unremarkable. NECK: Supple. CARDIOPULMONARY: Heart exam, normal S1 and S2. LUNGS: Decreased breath sounds. ABDOMEN: Soft. LABORATORY DATA: Laboratory examination reveals a white count of 8.9 and the chemistries are noted. Microbiology is reviewed. Review of orders reveal the patient to be on ceftriaxone. ASSESSMENT AND PLAN: This is a 66-year-old male with sensitive staph aureus right foot, multiloculated abscess collection on MRI, no evidence of osteo on MRI, currently status post incision and drainage. The patient is awaiting for transfer to transitional care, on ceftriaxone. We will follow with you. Cem Lane MD
--- NOTE | 2017-04-29 01:29 | DS ---
SUBJECTIVE: The patient is a 66-year-old, seen and examined, and doing well. His right foot erythema has significantly improved. His wound seem to be healing. Since the patient is found to be very noncompliant with his medication and his care, so he was transferred to TCU for wound care, rest, and antibiotic. PHYSICAL EXAMINATION: GENERAL: Today; he is awake, alert, oriented, and communicative. VITAL SIGNS: He is afebrile, pulse 94, respirations 20, and blood pressure 132/84. LUNGS: Bilateral good airflow. No rhonchi or crackle. HEART: S1 and S2 audible. ABDOMEN: Soft and nontender. No rebound. No guarding. NEUROLOGIC: The patient is awake, alert, oriented, and communicative. LABORATORY DATA: Blood sugar is 124. ASSESSMENT: 1. Right foot abscess. 2. Right foot and leg cellulitis, improved. 3. Status post incision and drainage of foot abscess. 4. Kpr-errfywl-frtiyjkaf diabetes. 5. Hypertension. 6. Hyperlipidemia. PLAN: The patient is being transferred to TCU. We will continue his Rocephin, continue wound care, and we will evaluate him in a.m. Anthony Yan MD
== END 2017-04-28 16:10 | DRG 603 ==
LOC: ED 11:07 → ERH 13:23 → 5RNO 15:21
PROVIDERS: ADMIT Internal Medicine; ATTEND Internal Medicine
PROC: 0HBMXZZ Excision of Right Foot Skin, External Approach (ICD-10-PCS; 2017-04-23)
PROC: 0H9MXZZ Drainage of Right Foot Skin, External Approach (ICD-10-PCS; principal; 2017-04-23 14:00)
DX: L03.115 Cellulitis of right lower limb (principal); N17.9 Acute kidney failure, unspecified; E11.40 Type 2 diabetes mellitus with diabetic neuropathy, unspecified; E11.621 Type 2 diabetes mellitus with foot ulcer; E11.65 Type 2 diabetes mellitus with hyperglycemia; L02.611 Cutaneous abscess of right foot; L97.519 Non-pressure chronic ulcer of other part of right foot with unspecified severity; I10 Essential (primary) hypertension; E86.0 Dehydration; E78.5 Hyperlipidemia, unspecified; E87.5 Hyperkalemia; D64.9 Anemia, unspecified; Z79.899 Other long term (current) drug therapy; Z91.14 Patient's other noncompliance with medication regimen; R40.2412 Glasgow coma scale score 13-15, at arrival to emergency department; B95.61 Methicillin susceptible Staphylococcus aureus infection as the cause of diseases classified elsewhere

== ENCOUNTER 2017-04-28 16:10 | Inpatient (IN) | payer BC, OTHER ==
[2017-04-28] MEDS ORDERED: Pneumococcal 23-Valent Vaccine IM ONE (19:19)
[2017-04-28] MEDS ORDERED: Influenza Vaccine 60 mcg/0.5 mL SYR (4YR UP) IM ONE (19:19)
[2017-04-28] MEDS: Insulin Reg-HIGH-Coverage SC SCH (21:41)
--- NOTE | 2017-04-29 01:06 | OP ---
PROCEDURE DATE: 04/28/2017 This is a 66-year-old male seen status post I and D to his right foot. The patient has no new complaints. His dressing is clean, dry, and intact. Upon removal of the dressing, the incision sites are clean, the sinus tracts are closing. They no longer are contiguous between the two sites. There is no longer of any fluctuance. There is no evidence of any remaining abscess. There is no cellulitis. The edema is decreasing. The patient was seen today in transitional care and he is on Rocephin as per the Infectious Disease. The patient has not yet got his Wedge shoe, I will reorder this today. His ankle and foot x-rays were grossly within normal and there was no evidence of osteo on MRI. The patient's pathology is necrotic fibrofatty tissue, and there was no tophi identified in the specimen, although it appeared to be tophi as we were cleaning it; however, pathology said that it was an acutely inflamed hemorrhagic adipose tissue. The patient will be seen in follow up. May Dougherty DPM
[2017-04-29] MEDS: cefTRIAXone 2 GM IN NS 2 GM/100 ML BAG IVPB SCH (05:29)
[2017-04-29] MEDS: Insulin Reg-HIGH-Coverage SC SCH ×4 (06:56→22:37)
[2017-04-29] MEDS: Insulin Lispro (humaLOG) MIX 75/25(10 ml) SC SCH ×2 (06:57→18:00)
[2017-04-29] MEDS: Silver Sulfadiazine 1% Cream (25 gm) TP SCH (11:00)
[2017-04-29] MEDS: Oxychlorosene Topical 2 gm Packet TOP SCH (11:20)
--- NOTE | 2017-04-29 11:20 | CP.PCM.PN ---
Subjective - Date & Time of Evaluation Date of Evaluation: 04/29/17 Time of Evaluation: 11:16 - Subjective Subjective: Podiatry Progress Note- Dr. Dougherty Patient is a 66 year old male seen at bedside with attending for POD #6 right foot incision and drainage of abscess. Patient is seen resting comfortably in bed, in NAD, and AA0x3. Denies of any acute overnight events. Patient denies any pain during visitation today. He denies n/v/sob/cp/chills or f. No new pedal complaints today. Objective - Vital Signs/Intake and Output Vital Signs (last 24 hours): Temp Pulse Resp BP Pulse Ox 97.4 F L 100 H 16 160/91 H 98 04/28/17 19:01 04/29/17 10:42 04/28/17 19:01 04/29/17 10:42 04/29/17 10:42 - Medications Medications: Current Medications Acetaminophen (Tylenol 325mg Tab) 650 mg PO Q6H PRN; Protocol PRN Reason: Pain, Mild (1-3) Atorvastatin Calcium (Lipitor) 10 mg PO DIN KEVIN PRN Reason: Protocol Last Admin: 04/28/17 18:46 Dose: 10 mg Glimepiride (Amaryl) 4 mg PO 0730 KEVIN PRN Reason: Protocol Last Admin: 04/29/17 08:30 Dose: 4 mg Ceftriaxone Sodium (Rocephin 2 Gm Ivpb) 2 gm in 100 mls @ 100 mls/hr IVPB 0630 KEVIN PRN Reason: Protocol Last Admin: 04/29/17 05:29 Dose: 100 mls/hr Insulin Human Regular (Humulin R High) 0 units SC ACHS KEVIN PRN Reason: Protocol Last Admin: 04/29/17 06:56 Dose: 2 units Insulin Lispro Protam/Lispro Human (Humalog Mix 75/25) 18 units SC 0730,1700 KEVIN PRN Reason: Protocol Last Admin: 04/29/17 06:57 Dose: 18 units Metformin HCl (Glucophage) 500 mg PO 0730,1700 KEVIN PRN Reason: Protocol Last Admin: 04/29/17 08:00 Dose: 500 mg Oxychlorosene Sodium (Clorpactin Wcs-90) 0 gm TOP DAILY KEVIN PRN Reason: Protocol Silver Sulfadiazine (Silvadene 1% 25 Gm) 0 gm TP DAILY KEVIN PRN Reason: Protocol Sitagliptin Phosphate (Januvia) 100 mg PO 0730 KEVIN PRN Reason: Protocol Last Admin: 04/29/17 08:30 Dose: 100 mg - Constitutional Appears: Well, Non-toxic, No Acute Distress - Neurological Exam Neurological Exam: Alert, Awake, Oriented x3 Additional comments: VASC: DP pulses palpable 2/4 b/l. PT pulses palpable 2/4 b/l. CFT <3 seconds to all digits. Temperature gradient warm to warm b/l, slight non-pitting edema noted to dorsum of right forefoot extending to digits, decreased. Pedal hair growth diminished. NEURO: Gross and protective sensation absent DERM: dorsal surgical site has no erythema noted periwound. Dorsal wound appears to have a 100% granular base; no purulence expressd, very minimal serosanguinous drainage noted. Surgical incision noted plantarly wound base is granular, no purulence able to be expressed; minimal serous noted. Absent erythema. Right 3rd interdigit is moisten with mild maceration noted. No opening, no erythema, no tunneling. ORTHO: No pain on palpation to erosion or surgical incisions. - Psychiatric Exam Psychiatric exam: Normal Affect, Normal Mood Assessment and Plan - Assessment and Plan (Free Text) Assessment: 66 year old male POD#6 I&D right foot 2/2 diabetic foot infection (negative osteomyelitis) Plan: Patient is seen and evaluated at bedside with attending Dr. Dougherty Plan discussed with attending Dr. Dougherty Chart, labs and vitals reviewed: afebrile, WBC=8.9 on 04/24/17 Uric acid WNL (6.3 on 04/23/17) Right foot and ankle XR (04/21/17): negative for osteomyelitis Right foot MRI (04/22/17 pre-debridement in OR): within the interspace between the third and fourth MTP joints and toes, there is a multilocculated cysstic fluid collection or abscess measuring 1.4x1.2x3.6cm. Distally, this fluid extends to the plantar aspect of the foot, suggestive of cellulitis. Negative for osteomyelitis Right foot WCx: + S. aureus Awaiting surgical cx and pathology Wounds flushed with saline solution, packing discontinued, silvadene applied, dressed with DSD, kerlix Right 3rd Interdigit spaces cleansed with alcohol swab WB to right heel in forefoot wedge shoe Continue PT c/w abx as per ID, will follow up regarding discharge plan Stable per podiatry, will follow
--- NOTE | 2017-04-30 04:42 | HP ---
HISTORY OF PRESENT ILLNESS: The patient is a 66-year-old known to me from office practice. I saw him almost a ubzs-ksw-r-half ago when he was complaining of naqvi redness and swelling along with foot swelling. He never mentioned that sole of the foot is hurting. So, I treated it initially as cellulitis and gouty arthritis, but his swelling kept on increasing, so he was brought to the emergency and was found to have abscess in his right foot. The patient underwent I and D, has been on IV antibiotics and transferred to TCU for wound care. PAST MEDICAL HISTORY: Significant for 1. Hypertension. 2. Hyperlipidemia. 3. Awj-kxmjyts-iydeiipls diabetes. ALLERGIES: HE IS NOT ALLERGIC TO ANY MEDICATION. MEDICATION AT HOME: He was on Bactrim. He was on metformin Janumet, simvastatin 10 mg daily, colchicine, and Celebrex. SOCIAL HISTORY: He has no history of smoking; however, he drinks heavy. PHYSICAL EXAMINATION: GENERAL: He is awake, alert, oriented, and communicative. VITAL SIGNS: He is afebrile, pulse 69, respirations 18, blood pressure . LUNGS: Bilateral good airflow. No rhonchi or crackle. HEART: S1 and S2 audible. ABDOMEN: Soft and nontender. No rebound. No guarding. NEUROLOGIC: He is awake, alert, oriented, and communicative. LABORATORY DATA: Blood sugar is 95. ASSESSMENT: 1. Right foot abscess, status post incision and drainage. 2. History of hypertension. 3. Hyperlipidemia. PLAN: We will continue the patient on current antibiotic. Continue wound care. We will reevaluate the patient in a.m. Anthony Yan MD
[2017-04-30] MEDS: cefTRIAXone 2 GM IN NS 2 GM/100 ML BAG IVPB SCH (05:56)
[2017-04-30] MEDS: Insulin Lispro (humaLOG) MIX 75/25(10 ml) SC SCH ×2 (06:29→17:50)
[2017-04-30] MEDS: Insulin Reg-HIGH-Coverage SC SCH ×4 (06:29→22:19)
[2017-04-30 09:44] LABS: ALKALINE PHOSPHATASE 65 U/L (38-126); ALT/SGPT 32 U/L (7-56); AST/SGOT 22 U/L (17-59); BILIRUBIN,TOTAL 0.3 mg/dL (0.2-1.3); BLOOD UREA NITROGEN 26 mg/dL (7-21); CALCIUM 9.5 mg/dL (8.4-10.5); CARBON DIOXIDE 28 mmol/L (21-33); CHLORIDE 98 mmol/L (98-107); GFR AFRICAN-AMERICAN > 60; GLUCOSE,RANDOM 322 mg/dL (70-110); POTASSIUM 5.5 mmol/L (3.6-5.0); SODIUM 136 mmol/L (132-148); TOTAL PROTEIN 7.6 g/dL (5.8-8.3)
[2017-04-30] MEDS: Silver Sulfadiazine 1% Cream (25 gm) TP SCH (09:44)
[2017-04-30] MEDS: Oxychlorosene Topical 2 gm Packet TOP SCH (09:44)
[2017-04-30 09:48] LABS: BASO # 0.02 K/mm3 (0.0-2.0); BASO % 0.3 % (0.0-3.0); EOS # 0.2 (0.0-0.7); EOS % 2.7 % (1.5-5.0); GRAN # 5.49 (1.4-6.5); GRAN % 70.3 % (50.0-68.0); HEMATOCRIT 38.2 % (42.0-52.0); LYMPH # 1.6 (1.2-3.4); LYMPH % 20.7 % (22.0-35.0); MEAN CELL VOLUME 88.6 fl (80.0-105.0); MEAN CORPUSCULAR HEMOGLOBIN 29.9 pg (25.0-35.0); MEAN CORPUSCULAR HGB CONC 33.8 g/dl (31.0-37.0); MEAN PLATELET VOLUME 9.7 fl (7.0-11.0); MONO # 0.5 (0.1-0.6); RED CELL DISTRIBUTION WIDTH 13.1 % (11.5-14.5); WHITE BLOOD COUNT 7.8 10^3/ul (4.5-11.0)
--- NOTE | 2017-04-30 16:16 | CP.PCM.PN ---
Subjective - Date & Time of Evaluation Date of Evaluation: 04/30/17 Time of Evaluation: 16:13 - Subjective Subjective: Podiatry Progress Note- Dr. Dougherty Patient is a 66 year old male seen at bedside with attending for POD #7 right foot incision and drainage of abscess. Patient is seen resting comfortably in bed, in NAD, and AA0x3. Patient denies overnight acute events. Patient reports no pain today. Denies of any acute overnight events. He denies n/v/sob/cp/ chills or f. Patient has no new complaints today. Objective - Vital Signs/Intake and Output Vital Signs (last 24 hours): Temp Pulse Resp BP Pulse Ox 97.9 F 92 H 16 108/68 100 04/30/17 11:28 04/30/17 11:28 04/30/17 11:28 04/30/17 11:28 04/30/17 11:28 Intake and Output: 04/30/17 04/30/17 06:59 18:59 Intake Total 420 Balance 420 - Medications Medications: Current Medications Acetaminophen (Tylenol 325mg Tab) 650 mg PO Q6H PRN; Protocol PRN Reason: Pain, Mild (1-3) Atorvastatin Calcium (Lipitor) 10 mg PO DIN KEVIN PRN Reason: Protocol Last Admin: 04/29/17 18:00 Dose: 10 mg Glimepiride (Amaryl) 4 mg PO 0730 KEVIN PRN Reason: Protocol Last Admin: 04/30/17 08:17 Dose: 4 mg Ceftriaxone Sodium (Rocephin 2 Gm Ivpb) 2 gm in 100 mls @ 100 mls/hr IVPB 0630 KEVIN PRN Reason: Protocol Last Admin: 04/30/17 05:56 Dose: 100 mls/hr Insulin Human Regular (Humulin R High) 0 units SC ACHS KEVIN PRN Reason: Protocol Last Admin: 04/30/17 12:10 Dose: Not Given Insulin Lispro Protam/Lispro Human (Humalog Mix 75/25) 18 units SC 0730,1700 KEVIN PRN Reason: Protocol Last Admin: 04/30/17 06:29 Dose: Not Given Metformin HCl (Glucophage) 500 mg PO 0730,1700 KEVIN PRN Reason: Protocol Last Admin: 04/30/17 08:17 Dose: 500 mg Oxychlorosene Sodium (Clorpactin Wcs-90) 0 gm TOP DAILY KEVIN PRN Reason: Protocol Last Admin: 04/30/17 09:44 Dose: Not Given Silver Sulfadiazine (Silvadene 1% 25 Gm) 0 gm TP DAILY KEVIN PRN Reason: Protocol Last Admin: 04/30/17 09:44 Dose: Not Given Sitagliptin Phosphate (Januvia) 100 mg PO 0730 KEVIN PRN Reason: Protocol Last Admin: 04/30/17 08:17 Dose: 100 mg - Labs Labs: 04/30/17 08:27 04/30/17 09:10 - Constitutional Appears: Well, Non-toxic, No Acute Distress - Extremities Exam Additional comments: VASC: DP pulses palpable 2/4 b/l. PT pulses palpable 2/4 b/l. CFT <3 seconds to all digits. Temperature gradient warm to warm b/l, very mild edema noted to the forefoot, decreasing. Pedal hair growth diminished. NEURO: Gross and protective sensation absent DERM: dorsal surgical site has no erythema noted periwound. Dorsal wound appears to have a 100% granular base; no purulence expressd, very minimal serosanguinous drainage noted. Surgical incision noted plantarly wound base is granular with central fibrotic tissue noted, no purulence able to be expressed; minimal serous noted. Absent erythema. Overall, ulceration is improving. Right 3rd interdigit with very mild maceration noted, improving. No opening, no erythema, no tunneling. ORTHO: No pain on palpation to erosion or surgical incisions. - Neurological Exam Neurological Exam: Alert, Awake, Oriented x3 - Psychiatric Exam Psychiatric exam: Normal Affect, Normal Mood Assessment and Plan - Assessment and Plan (Free Text) Assessment: 66 year old male POD#7 I&D right foot 2/2 diabetic foot infection (negative osteomyelitis) Plan: Patient is seen and evaluated at bedside with attending Dr. Dougherty Plan discussed with attending Dr. Dougherty Chart, labs and vitals reviewed: afebrile, WBC=7.8 on 04/30/17 Uric acid WNL (6.3 on 04/23/17) Right foot and ankle XR (04/21/17): negative for osteomyelitis Right foot MRI (04/22/17 pre-debridement in OR): within the interspace between the third and fourth MTP joints and toes, there is a multilocculated cysstic fluid collection or abscess measuring 1.4x1.2x3.6cm. Distally, this fluid extends to the plantar aspect of the foot, suggestive of cellulitis. Negative for osteomyelitis Right foot WCx: + S. aureus (04/20/17) Right foot WCx: +S aureus (04/23/17) Awaiting surgical cx and pathology Wounds flushed with saline solution, packing discontinued, silvadene applied, dressed with DSD, kerlix Right 3rd Interdigit spaces cleansed with alcohol swab WB to right heel in forefoot wedge shoe Continue PT c/w abx as per ID, will follow up regarding discharge plan Stable per podiatry, will follow
--- NOTE | 2017-04-30 20:57 | PN ---
DATE: SUBJECTIVE: The patient is 66-year-old, seen and examined, ambulating with offloading boot on. No nausea, vomiting, or diarrhea. No fever, no chills. PHYSICAL EXAMINATION: VITAL SIGNS: He is afebrile, pulse 92, respirations 16, blood pressure 108/68. LUNGS: Bilateral good airflow. No rhonchi or crackles. HEART: S1 and S2, audible. ABDOMEN: Soft, nontender. No rebound. No guarding. NEUROLOGIC: He is awake, alert, and oriented, communicative and ambulatory. Left foot is in the dressing. LABORATORY EXAMINATION: WBC 7.8, hemoglobin 12.9, hematocrit 38.2, platelets of 319. Chemistry: Sodium 136, potassium 5.5, chloride 98, CO2 of 28, BUN 26, creatinine 1.2, blood sugar of 174. ASSESSMENT: 1. Right foot abscess, status post incision and drainage. 2. Noninsulin-dependent diabetes. 3. Hypertension. 4. Hyperlipidemia. PLAN: We will continue patient on Rocephin. Continue local wound care. We will reevaluate in a.m. and discharge plan soon. Anthony Yan MD
[2017-05-01] MEDS: cefTRIAXone 2 GM IN NS 2 GM/100 ML BAG IVPB SCH (05:34)
[2017-05-01] MEDS: Insulin Lispro (humaLOG) MIX 75/25(10 ml) SC SCH ×2 (06:37→17:11)
[2017-05-01] MEDS: Insulin Reg-HIGH-Coverage SC SCH ×4 (06:38→21:48)
[2017-05-01] MEDS: Oxychlorosene Topical 2 gm Packet TOP SCH (10:18)
[2017-05-01] MEDS: Silver Sulfadiazine 1% Cream (25 gm) TP SCH (10:19)
--- NOTE | 2017-05-01 12:54 | PN ---
DATE: SUBJECTIVE: This 66-year-old male is seen at bedside with Dr. Yan for evaluation and management of a right foot abscess which required incision and drainage procedure. The patient has been afebrile and reports no pain. PHYSICAL EXAMINATION: VITAL SIGNS: The patient's vital signs revealed temperature of 98, blood pressure of 128/91, pulse rate of 90, respiratory rate of 18. EXTREMITIES: Right foot presents with weakly palpable pedal pulses noted bilaterally. The patient is unable to detect 5.07 gram monofilament wire testing bilaterally. There is a full-thickness ulceration secondary to incision and drainage on the dorsal and plantar aspect of his right foot at the third metatarsal phalangeal joint area. The base of the wounds are granular with minimal serous drainage. There is no purulence. There is no malodor. LABORATORY DATA: Findings revealed white count of 7.8, hemoglobin of 12.9, hematocrit of 38.2, and platelet count of 319. His ESR is still elevated at 106. ASSESSMENT: Resolving abscess formation on the right foot which required incision and drainage procedure. ASSESSMENT AND PLAN: I spoke with Dr. Yan at length regarding case and the patient will be discharged with p.o. antibiotics. His ESR is elevated, however, Infectious Diseases input recommends p.o. antibiotics as per Dr. Yan. The patient will need visiting nurses to come to his home twice weekly to change his dressing and he will follow up at the Wound Center with Dr. Dougherty or myself once weekly. A forefoot loading shoe will be ordered to offload the front of his foot and he was told to remain off of his feet as much as possible to allow granulation tissue to proliferate and for his wounds heal. Discussed with the patient at length the need to avoid alcohol beverages, as this will decrease the efficacy of his oral antibiotics. The patient stated he would comply. Armando Figueroa DPM
--- NOTE | 2017-05-01 22:07 | PN ---
DATE: SUBJECTIVE: The patient is a 66-year-old, seen and examined, doing well, eating and tolerating. No nausea or vomiting. No diarrhea. PHYSICAL EXAMINATION VITAL SIGNS: He is afebrile, pulse 90, respirations 18 and blood pressure 128/91. LUNGS: Bilateral fair airflow. No rhonchi or crackle. HEART: S1 and S2 audible. ABDOMEN: Soft and nontender. No rebound. No guarding. NEUROLOGIC: He is awake, alert and oriented. Communicative, ambulatory. EXTREMITIES: He is walking on his offloading boot. His wound was seen, it seems to be granulating well. ASSESSMENT: 1. Right foot abscess status post incision and drainage. 2. Poorly controlled diabetes. 3. Hypertension. 4. Hyperlipidemia. PLAN: We are trying to teach the patient how to inject insulin. He does not want to take insulin. He stated he will stay with his oral hypoglycemic. I will request for Dory Hull to educate the patient. In the meantime, we will continue on current IV antibiotics. Arrangement will be made for visiting nurses to take care of his wound at home twice a week and he will come to wound center once a week. Discussed with Dr. Figueroa, discharge plan for a.m. Anthony Yan MD
[2017-05-02] MEDS: cefTRIAXone 2 GM IN NS 2 GM/100 ML BAG IVPB SCH (05:30)
[2017-05-02] MEDS: Insulin Reg-HIGH-Coverage SC SCH (06:35)
[2017-05-02] MEDS: Insulin Lispro (humaLOG) MIX 75/25(10 ml) SC SCH (06:35)
[2017-05-02 06:50] VITALS: PULSE 92
--- NOTE | 2017-05-02 10:05 | CP.PCM.PN ---
Subjective - Date & Time of Evaluation Date of Evaluation: 05/02/17 Time of Evaluation: 10:02 - Subjective Subjective: Podiatry Progress Note - Dr. Dougherty/[place] Patient is a 66 year old male seen and evaluated at bedside in TCU POD #8 right foot incision and drainage of abscess. Patient hemodynamically stable and NAD. No acute events overnight. No pedal complaints this visit; states he is ambulating in his wedge shoe without any issues. Patient is aware he is being discharged today and will follow up with Dr. Dougherty in wound care clinic next week Thursday. Denies N/V/F/D/C/SOB/calf pain. Objective - Vital Signs/Intake and Output Vital Signs (last 24 hours): Temp Pulse Resp BP Pulse Ox 98 F 92 H 16 126/82 96 05/02/17 06:00 05/02/17 06:00 05/02/17 06:00 05/02/17 06:00 05/02/17 06:00 - Medications Medications: Current Medications Acetaminophen (Tylenol 325mg Tab) 650 mg PO Q6H PRN; Protocol PRN Reason: Pain, Mild (1-3) Atorvastatin Calcium (Lipitor) 10 mg PO DIN KEIVN PRN Reason: Protocol Last Admin: 05/01/17 17:23 Dose: 10 mg Glimepiride (Amaryl) 4 mg PO 0730 KEVIN PRN Reason: Protocol Last Admin: 05/02/17 08:19 Dose: 4 mg Ceftriaxone Sodium (Rocephin 2 Gm Ivpb) 2 gm in 100 mls @ 100 mls/hr IVPB 0630 KEVIN PRN Reason: Protocol Last Admin: 05/02/17 05:30 Dose: 100 mls/hr Insulin Human Regular (Humulin R High) 0 units SC ACHS KEVIN PRN Reason: Protocol Last Admin: 05/02/17 06:35 Dose: Not Given Insulin Lispro Protam/Lispro Human (Humalog Mix 75/25) 18 units SC 0730,1700 KEVIN PRN Reason: Protocol Last Admin: 05/02/17 06:35 Dose: Not Given Metformin HCl (Glucophage) 500 mg PO 0730,1700 KEVIN PRN Reason: Protocol Last Admin: 05/02/17 08:19 Dose: 500 mg Oxychlorosene Sodium (Clorpactin Wcs-90) 0 gm TOP DAILY KEVIN PRN Reason: Protocol Last Admin: 05/01/17 10:18 Dose: Not Given Silver Sulfadiazine (Silvadene 1% 25 Gm) 0 gm TP DAILY KEVIN PRN Reason: Protocol Last Admin: 05/01/17 10:19 Dose: Not Given Sitagliptin Phosphate (Januvia) 100 mg PO 0730 KEVIN PRN Reason: Protocol Last Admin: 05/02/17 08:19 Dose: 100 mg - Labs Labs: 04/30/17 08:27 04/30/17 09:10 - Constitutional Appears: Well, Non-toxic, No Acute Distress - Extremities Exam Additional comments: VASC: DP pulses palpable 2/4 b/l. PT pulses palpable 2/4 b/l. CFT <3 seconds to all digits. Temperature gradient warm to warm b/l. No edema noted to right foot. Pedal hair growth diminished. NEURO: Gross and protective sensation absent DERM: Dorsal surgical wound appears to have a 100% granular base with no periwound erythema noted; no purulence expressed, very minimal serosanguinous drainage noted. Surgical incision noted plantarly wound base is granular with central fibrotic tissue noted, no purulence able to be expressed; minimal serous noted. Absent erythema. Overall, ulcerations are improving. ORTHO: No pain on palpation to entire right foot. - Neurological Exam Neurological Exam: Alert, Awake, Oriented x3 - Psychiatric Exam Psychiatric exam: Normal Affect, Normal Mood Assessment and Plan - Assessment and Plan (Free Text) Assessment: 66 year old male POD#8 I&D right foot 2/2 diabetic foot infection (negative osteomyelitis) Plan: Patient is seen and evaluated at bedside Discussed with attending, Dr. Figueroa afebrile Uric acid WNL (6.3 on 04/23/17) Right foot and ankle XR (04/21/17): negative for osteomyelitis Right foot MRI (04/22/17 pre-debridement in OR): within the interspace between the third and fourth MTP joints and toes, there is a multilocculated cysstic fluid collection or abscess measuring 1.4x1.2x3.6cm. Distally, this fluid extends to the plantar aspect of the foot, suggestive of cellulitis. Negative for osteomyelitis Right foot WCx: + S. aureus (04/20/17) Right foot WCx: +S aureus (04/23/17) Pathology report: -A) Debrided tissue right foot = Fragment of mildly hyperkeratotic skin with underlying inflamed, necrotic fibrofatty tissue -B) Tophi right foot = Fragment of necrotic, acutely inflamd, hemorrhagic adipose tissue. No gouty tophi identified. Entire specimen examined Wounds flushed with saline solution, silvadene applied, dressed with DSD WB to right heel in forefoot wedge shoe Continue PT Per medicine, patient will continue current abx Patient aware he is to follow up in wound care center next week Thursday for outpatient care VNS to change dressing 2x/week Stable for discharge from podiatry standpoint
[2017-05-02] MEDS: Oxychlorosene Topical 2 gm Packet TOP SCH (10:08)
[2017-05-02] MEDS: Silver Sulfadiazine 1% Cream (25 gm) TP SCH (10:08)
[2017-05-02 11:01] VITALS: BP 131/83; RESP 18; TEMP 97.5; O2SAT 100
--- NOTE | 2017-05-03 04:58 | DS ---
HISTORY OF PRESENT ILLNESS: The patient is 66 years old, seen and examined. He was seen in the office for leg swelling and foot redness. Since his foot was painful, he was given colchicine and steroid since he does have a history of gout, but his swelling kept on increasing. He was referred to our emergency room for further evaluation. He was found to have right foot abscess that had I and D done. He was given IV Rocephin. The patient was given offloading shoe to place, so he received IV antibiotics and wound care per research methods instructor, doing well, being discharged today. PHYSICAL EXAMINATION: GENERAL: He is awake, alert, and oriented. Communicative. VITAL SIGNS: He is afebrile. Pulse 92, respirations 18, blood pressure 134/93. LUNGS: Bilateral fair airflow. No rhonchi or crackles. HEART: S1 and S2 audible. ABDOMEN: Soft and nontender. No rebound. No guarding. NEUROLOGIC: The patient is awake, alert, and oriented. Communicative, ambulatory. He is walking fine and has offloading boot on his right foot.. ASSESSMENT: 1. Right foot abscess. 2. Insulin-dependent diabetes. 3. Hypertension. 4. Hyperlipidemia. PLAN: The patient is being discharged home on Augmentin 850 mg twice a day. We will arrange for visiting nurses to look at his wound twice a week, and he will follow up in the wound care center once a week and will follow up in the office in a week. Anthony Yan MD
== END 2017-05-02 12:06 | disposition home or self-care (01) | DRG 603 ==
LOC: TRCU 16:10
PROVIDERS: ADMIT Internal Medicine; ATTEND Internal Medicine
DX: L02.611 Cutaneous abscess of right foot (principal); E11.65 Type 2 diabetes mellitus with hyperglycemia; E78.5 Hyperlipidemia, unspecified; I10 Essential (primary) hypertension; M10.9 Gout, unspecified; Z79.4 Long term (current) use of insulin